=== PATIENT | female | born 1955 | race American Indian/Alaskan Native ===

== ENCOUNTER 2017-04-29 14:08 | Observation (INO) | payer MEDICAID, OTHER ==
[2017-04-29] MEDS ORDERED: Aspirin 81 MG Tab.Chew PO ONE (15:56)
--- NOTE | 2017-04-29 16:04 | EDM.PDOC ---
ED HPI GENERAL MEDICAL PROBLEM - General Chief Complaint: Fever Stated Complaint: DIZZY,FEVER Time Seen by Provider: 04/29/17 15:50 Source of Information: Reports: Patient History Limitations: Reports: No Limitations - History of Present Illness INITIAL COMMENTS - FREE TEXT/NARRATIVE: HISTORY AND PHYSICAL: History of present illness: [Patient comes to the emergency room complaining of fever and dizziness with sudden onset this morning. Temp has been up to 103 at home today. She states that her daughter gave her a medication to reduce her fever but she isn't sure what it was. She denies headache and runny nose. She has a mild sore throat. No cough or chest congestion. 2 episodes of vomiting while in the ER which she was not experiencing prior to arrival. No diarrhea or constipation. She denies nausea currently. No leg pain other than bilateral foot pain yesterday. Admits to pain over her kidneys, L worse than R. she has no muscle or joint aches or pains. She has a history of diabetes for which she takes po meds. Review of systems: As per history of present illness and below otherwise all systems reviewed and negative. Past medical history: As per history of present illness and as reviewed below otherwise noncontributory. Surgical history: As per history of present illness and as reviewed below otherwise noncontributory. Social history: No reported history of drug or alcohol abuse. Family history: As per history of present illness and as reviewed below otherwise noncontributory. Physical exam: Gen. well-developed well-nourished female in no acute distress. She is resting on the exam table breathing heavily with her eyes closed. She appears tired. HEENT: Atraumatic, normocephalic. Oral mucous membranes are pink and moist. Lungs: Clear to auscultation, breath sounds equal bilaterally. No wheezing, crackles or rales. Heart: S1S2, regular rate and rhythm. Abdomen: Bowel sounds are normoactive throughout. Soft, nondistended, nontender. No suprapubic tenderness w/ palpation. Negative for masses, guarding or rebound. Tender w/ palpation over L flank. Pelvis: Stable nontender. Genitourinary: Deferred. Rectal: Deferred. Extremities: Atraumatic, no calf pain w/ palpation. Neurovascular unremarkable. Neuro: Awake, alert, oriented. Motor and sensory unremarkable throughout. Exam nonfocal. Diagnostics: [CBC, CMP, EKG, troponin, Influenza A&B, PT/INR, chest x-ray ] Therapeutics: [aspirin 324mg, Rocephin 1 gram IV, 1 liter NS] Impression: [UTI] Plan: [UA shows yellow cloudy urine with a moderate amount of blood and 500 glucose. Moderate amount of leukocyte esterase and white blood cells that are too numerous to count. I discussed patient's condition with Dr. Deepak Appiah who agrees to place patient in observation for IV fluids and antibiotics. Patient is in agreement with today's plan for observation.] Definitive disposition and diagnosis as appropriate pending reevaluation and review of above. Abdomen Pain Score (Numeric/FACES): 6 - Related Data Allergies Allergy/AdvReac Type Severity Reaction Status Date / Time No Known Allergies Allergy Verified 04/29/17 15:27 Home Meds: Home Meds Rex-3 Fatty Acids [Fish Oil] 1 tab PO DAILY 03/23/14 [History] metFORMIN [Glucophage] 1 tab PO BID 03/23/14 [History] Aspirin 81 mg PO DAILY 04/29/17 [History] Cholecalciferol (Vitamin D3) [Vitamin D3] 1,000 unit PO DAILY 04/29/17 [History] Pioglitazone [Actos] 45 mg PO DAILY 04/29/17 [History] Past Medical History Neurological History: Reports: TIA Endocrine/Metabolic History: Reports: Diabetes, Type II - Infectious Disease History Infectious Disease History: Reports: Chicken Pox Social & Family History - Family History Family Medical History: Noncontributory - Tobacco Use Smoking Status *Q: Former Smoker Years of Tobacco use: 30 Used Tobacco, but Quit: Yes Month Tobacco Last Used: 03/04 - Caffeine Use Caffeine Use: Reports: Coffee - Alcohol Use Days Per Week of Alcohol Use: 0 - Recreational Drug Use Recreational Drug Use: No ED ROS ENT - Review of Systems Review Of Systems: ROS reveals no pertinent complaints other than HPI. ED EXAM, ENT - Physical Exam Exam: See Below Course - Vital Signs Last Recorded V/S: Last Vital Signs Temp 98.2 F 04/30/17 07:00 Pulse 86 04/30/17 07:00 Resp 16 04/30/17 07:00 BP 119/57 L 04/30/17 07:00 Pulse Ox 95 04/30/17 07:00 - Orders/Labs/Meds Orders: Active Orders 24 hr Category Date Time Status Chest 1V Frontal [CR] Stat Exams 04/29/17 15:56 Taken CULTURE BLOOD [BC] Stat Lab 04/29/17 18:31 Received CULTURE BLOOD [BC] Stat Lab 04/29/17 18:40 Received CULTURE URINE [RM] Stat Lab 04/29/17 17:00 Received Blood Culture x2 Reflex Set [OM.PC] Stat Oth 04/29/17 17:54 Ordered Medication Orders Acetaminophen (Tylenol) 650 mg PO Q4H PRN PRN Reason: Pain (Mild 1-3)/fever Enoxaparin Sodium (Lovenox) 40 mg SUBCUT DAILY [facility] Last Admin: 04/30/17 08:39 Dose: 40 mg Sodium Chloride (Normal Saline) 1,000 mls @ 125 mls/hr IV ASDIRECTED [facility] Last Admin: 04/30/17 03:49 Dose: 125 mls/hr Infusion: 04/30/17 03:45 Dose: 125 mls/hr Admin: 04/29/17 19:45 Dose: 125 mls/hr Ceftriaxone Sodium/Dextrose 1 (gm/ Premix) 50 mls @ 100 mls/hr IV Q24H [facility] Insulin Aspart (Novolog) 0 unit SUBCUT TIDAC [facility] PRN Reason: Protocol Last Admin: 04/30/17 06:54 Dose: Not Given Ondansetron HCl (Zofran) 4 mg IVPUSH Q4H PRN PRN Reason: Nausea Labs: Laboratory Tests 04/29/17 04/29/17 04/29/17 Range/Units 16:11 16:11 16:11 WBC 15.22 H (4.0-11.0) K/uL RBC 4.13 L (4.30-5.90) M/uL Hgb 12.2 (12.0-16.0) g/dL Hct 35.9 L (36.0-46.0) % MCV 86.9 (80.0-98.0) fL MCH 29.5 (27.0-32.0) pg MCHC 34.0 (31.0-37.0) g/dL RDW Std Deviation 42.6 (28.0-62.0) fl RDW Coeff of Leon 13 (11.0-15.0) % Plt Count 261 (150-400) K/uL MPV 9.70 (7.40-12.00) fL Neut % (Auto) 87.9 H (48.0-80.0) % Lymph % (Auto) 6.4 L (16.0-40.0) % [place] % (Auto) 5.6 (0.0-15.0) % Eos % (Auto) 0.0 (0.0-7.0) % Baso % (Auto) 0.1 (0.0-1.5) % Neut # (Auto) 13.4 H (1.4-5.7) K/uL Lymph # (Auto) 1.0 (0.6-2.4) K/uL [place] # (Auto) 0.9 H (0.0-0.8) K/uL Eos # (Auto) 0.0 (0.0-0.7) K/uL Baso # (Auto) 0.0 (0.0-0.1) K/uL Nucleated RBC % 0.0 /100WBC Nucleated RBCs # 0 K/uL INR 0.94 (0.86-1.11) D-Dimer, Quantitative (0.0-0.52) mg/LFEU Lactate (0.20-2.00) mmol/L Sodium 135 L (136-146) mmol/L Potassium 4.7 (3.5-5.1) mmol/L Chloride 102 (98-110) mmol/L Carbon Dioxide 20 L (21-31) mmol/L BUN 14 (6.0-23.0) mg/dL Creatinine 0.9 (0.6-1.5) mg/dL Est Cr Clr Drug Dosing 63.01 mL/min Estimated GFR (MDRD) > 60.0 ml/min Glucose 270 H (60-110) mg/dL Calcium 9.5 (8.8-10.8) mg/dL Total Bilirubin 0.6 (0.1-1.5) mg/dL AST 12 (5-40) IU/L ALT 11 (8-54) IU/L Alkaline Phosphatase 108 (40-150) Troponin I < 0.10 (0.0-0.29) NG/ML Total Protein 7.5 (6.0-8.0) g/dL Albumin 4.1 (3.5-5.0) g/dL Globulin 3.4 (2.0-3.5) g/dL Albumin/Globulin Ratio 1.2 L (1.3-2.8) Urine Color Urine Appearance Urine pH (5.0-8.0) Ur Specific [place] (1.001-1.035) Urine Protein (NEGATIVE) mg/dL Urine Glucose (UA) (NEGATIVE) mg/dL Urine Ketones (NEGATIVE) mg/dL Urine Occult Blood (NEGATIVE) Urine Nitrite (NEGATIVE) Urine Bilirubin (NEGATIVE) Urine Urobilinogen (<2.0) EU/dL Ur Leukocyte Esterase (NEGATIVE) Urine RBC (0-2/HPF) Urine WBC (0-5/HPF) Ur Epithelial Cells (NONE-FEW) Urine Bacteria (NEGATIVE) Urine Mucus (NONE-MOD) Urine Yeast 04/29/17 04/29/17 04/29/17 Range/Units 16:11 16:11 17:00 WBC (4.0-11.0) K/uL RBC (4.30-5.90) M/uL Hgb (12.0-16.0) g/dL Hct (36.0-46.0) % MCV (80.0-98.0) fL MCH (27.0-32.0) pg MCHC (31.0-37.0) g/dL RDW Std Deviation (28.0-62.0) fl RDW Coeff of Leon (11.0-15.0) % Plt Count (150-400) K/uL MPV (7.40-12.00) fL Neut % (Auto) (48.0-80.0) % Lymph % (Auto) (16.0-40.0) % [place] % (Auto) (0.0-15.0) % Eos % (Auto) (0.0-7.0) % Baso % (Auto) (0.0-1.5) % Neut # (Auto) (1.4-5.7) K/uL Lymph # (Auto) (0.6-2.4) K/uL [place] # (Auto) (0.0-0.8) K/uL Eos # (Auto) (0.0-0.7) K/uL Baso # (Auto) (0.0-0.1) K/uL Nucleated RBC % /100WBC Nucleated RBCs # K/uL INR (0.86-1.11) D-Dimer, Quantitative 0.31 (0.0-0.52) mg/LFEU Lactate 1.8 (0.20-2.00) mmol/L Sodium (136-146) mmol/L Potassium (3.5-5.1) mmol/L Chloride (98-110) mmol/L Carbon Dioxide (21-31) mmol/L BUN (6.0-23.0) mg/dL Creatinine (0.6-1.5) mg/dL Est Cr Clr Drug Dosing mL/min Estimated GFR (MDRD) ml/min Glucose (60-110) mg/dL Calcium (8.8-10.8) mg/dL Total Bilirubin (0.1-1.5) mg/dL AST (5-40) IU/L ALT (8-54) IU/L Alkaline Phosphatase (40-150) Troponin I (0.0-0.29) NG/ML Total Protein (6.0-8.0) g/dL Albumin (3.5-5.0) g/dL Globulin (2.0-3.5) g/dL Albumin/Globulin Ratio (1.3-2.8) Urine Color YELLOW Urine Appearance CLOUDY Urine pH 5.5 (5.0-8.0) Ur Specific [place] >= 1.030 (1.001-1.035) Urine Protein 30 (NEGATIVE) mg/dL Urine Glucose (UA) 500 H (NEGATIVE) mg/dL Urine Ketones NEGATIVE (NEGATIVE) mg/dL Urine Occult Blood MODERATE (NEGATIVE) Urine Nitrite NEGATIVE (NEGATIVE) Urine Bilirubin NEGATIVE (NEGATIVE) Urine Urobilinogen 0.2 (<2.0) EU/dL Ur Leukocyte Esterase MODERATE (NEGATIVE) Urine RBC 1-3 (0-2/HPF) Urine WBC TO NUMEROUS TO COUNT H (0-5/HPF) Ur Epithelial Cells OCCASIONAL (NONE-FEW) Urine Bacteria FEW (NEGATIVE) Urine Mucus LIGHT (NONE-MOD) Urine Yeast RARE Meds: Medications Generic Name Dose Route Start Last Admin Trade Name Freq PRN Reason Stop Dose Admin Acetaminophen 650 mg 04/29/17 19:45 Tylenol PO Q4H PRN Pain (Mild 1-3)/fever Enoxaparin Sodium 40 mg 04/30/17 09:00 04/30/17 08:39 Lovenox SUBCUT 40 mg DAILY AJ Administration Sodium Chloride 1,000 mls @ 125 mls/hr 04/29/17 19:30 04/30/17 03:49 Normal Saline IV 125 mls/hr ASDIRECTED [facility] Administration Ceftriaxone Sodium/Dextrose 1 50 mls @ 100 mls/hr 04/30/17 18:00 gm/ Premix IV Q24H [facility] Insulin Aspart 0 unit 04/30/17 07:30 04/30/17 06:54 Novolog SUBCUT Not Given TIDAC [facility] Protocol Ondansetron HCl 4 mg 04/29/17 19:45 Zofran IVPUSH Q4H PRN Nausea Discontinued Medications Generic Name Dose Route Start Last Admin Trade Name Freq PRN Reason Stop Dose Admin Aspirin 324 mg 04/29/17 15:56 04/29/17 16:21 Aspirin PO 04/29/17 15:57 324 mg ONETIME ONE Administration Ceftriaxone Sodium 1,000 mg 04/30/17 19:30 Rocephin IVPUSH Q24H [facility] Ceftriaxone Sodium 1,000 mg/ 50 mls @ 200 mls/hr 04/29/17 17:54 04/29/17 18: 12 Sodium Chloride IV 04/29/17 18:08 Not Given ONETIME ONE Sodium Chloride 1,000 mls @ 999 mls/hr 04/29/17 17:53 04/29/17 18:17 Normal Saline IV 04/29/17 18:53 999 mls/hr STAT ONE Administration Ceftriaxone Sodium/Dextrose 1 50 mls @ 100 mls/hr 04/29/17 18:11 04/29/17 18: 17 gm/ Premix IV 04/29/17 18:40 100 mls/hr ONETIME ONE Administration Departure - Departure Time of Disposition: 18:59 Disposition: Refer to Observation Condition: Good Clinical Impression: UTI (urinary tract infection) - Discharge Information - My Orders Last 24 Hours: My Active Orders 04/29/17 15:56 Chest 1V Frontal [CR] Stat 04/29/17 17:00 CULTURE URINE [RM] Stat 04/29/17 17:54 Blood Culture x2 Reflex Set [OM.PC] Stat 04/29/17 18:31 CULTURE BLOOD [BC] Stat 04/29/17 18:40 CULTURE BLOOD [BC] Stat - Assessment/Plan Last 24 Hours: My Active Orders 04/29/17 15:56 Chest 1V Frontal [CR] Stat 04/29/17 17:00 CULTURE URINE [RM] Stat 04/29/17 17:54 Blood Culture x2 Reflex Set [OM.PC] Stat 04/29/17 18:31 CULTURE BLOOD [BC] Stat 04/29/17 18:40 CULTURE BLOOD [BC] Stat
[2017-04-29 16:41] LABS: CHLORIDE,CL 102 mmol/L (98-110); SODIUM,NA 135 mmol/L (136-146)
[2017-04-29] MEDS ORDERED: Sodium Chloride 0.9% 1,000 ML IV ONE (17:53)
[2017-04-29] MEDS ORDERED: cefTRIAXone 1,000 MG in Sodium Chloride 0.9% 50 ML IV ONE (17:54)
[2017-04-29] MEDS ORDERED: cefTRIAXone 1 GM in Premix Bag 1 BAG IV ONE (18:11)
[2017-04-29] MEDS ORDERED: Ondansetron 4 MG/2 ML SDV IVPUSH PRN (19:45)
[2017-04-29] MEDS: Sodium Chloride 0.9% 1,000 ML IV SCH (19:45)
--- NOTE | 2017-04-29 19:52 | PCM.HP ---
H&P History of Present Illness - General Admit Problem/Dx: Admission Diagnosis/Problem Admission Diagnosis/Problem UTI, Urinary tract infectious disease - History of Present Illness Initial Comments - Free Text/Narative: 61yo female with pmh of type 2 DM who presents with one day history of fevers, chill, nausea, and bilateral flank pain. She had just finished a course of amoxicillin for a cold. In the ED she was noted to have a WBC of 15,220 and pyuria. She was given Rocephin IV. Abdomen Pain Score (Numeric/FACES): 6 - Related Data Allergies/Adverse Reactions: Allergies Allergy/AdvReac Type Severity Reaction Status Date / Time No Known Allergies Allergy Verified 04/29/17 15:27 Home Medications: Home Meds Show Low-3 Fatty Acids [Fish Oil] 1 tab PO DAILY 03/23/14 [History] metFORMIN [Glucophage] 1 tab PO BID 03/23/14 [History] Aspirin 81 mg PO DAILY 04/29/17 [History] Cholecalciferol (Vitamin D3) [Vitamin D3] 1,000 unit PO DAILY 04/29/17 [History] Pioglitazone [Actos] 45 mg PO DAILY 04/29/17 [History] Past Medical History Neurological History: Reports: TIA Endocrine/Metabolic History: Reports: Diabetes, Type II - Infectious Disease History Infectious Disease History: Reports: Chicken Pox Social & Family History - Family History Family Medical History: Noncontributory - Tobacco Use Smoking Status *Q: Former Smoker Years of Tobacco use: 30 Used Tobacco, but Quit: Yes Month Tobacco Last Used: 03/04 - Caffeine Use Caffeine Use: Reports: Coffee - Alcohol Use Days Per Week of Alcohol Use: 0 - Recreational Drug Use Recreational Drug Use: No H&P Review of Systems - Review of Systems: Review Of Systems: ROS reveals no pertinent complaints other than HPI. Exam - Exam Exam: See Below - Vital Signs Vital Signs: Last Vital Signs Temp 35.9 C 04/29/17 19:21 Pulse 59 L 04/29/17 19:21 Resp 18 04/29/17 19:21 BP 113/63 04/29/17 18:00 Pulse Ox 97 04/29/17 19:21 Weight: 84.2 kg - Exam General: Alert, Oriented HEENT: Mucosa Moist & [place] Lungs: Clear to Auscultation, Normal Respiratory Effort Cardiovascular: Regular Rate, Regular Rhythm GI/Abdominal Exam: Soft, Non-Tender, No Distention Back Exam: CVA Tenderness (L) (mild), CVA Tenderness (R) (mild) Extremities: No Pedal Edema Skin: Warm, Dry, Intact Neurological: No: Focal Deficit - Patient Data Result Diagrams: 04/30/17 06:15 04/30/17 06:15 *Q Meaningful Use (ADM) - VTE *Q VTE Criteria *Q: - Stroke *Q Stroke Criteria *Q: - AMI *Q AMI Criteria *Q: Problem List Initiated/Reviewed/Updated: Yes Orders Last 24hrs: Active Orders 24 hr Category Date Time Status Antiembolic Devices [RC] PER UNIT ROUTINE Care 04/29/17 19:46 Ordered Blood Glucose Check, Bedside [RC] TIDAC Care 04/29/17 19:20 Active Oxygen Therapy [RC] PRN Care 04/29/17 19:45 Ordered Up ad Dina [RC] ASDIRECTED Care 04/29/17 19:45 Ordered VTE/DVT Education [RC] PER UNIT ROUTINE Care 04/29/17 19:45 Ordered Vital Signs [RC] Q4H Care 04/29/17 19:45 Ordered Citizen Of [place] Diabetic Association Diet [DIET] Diet 04/29/17 Breakfast Ordered Retroperitoneal Ltd [US] Routine Exams 04/29/17 19:22 Ordered Venous Doppler Lwr Ext Rt [US] Routine Exams 04/29/17 19:34 Ordered BASIC METABOLIC PANEL,BMP [CHEM] AM Lab 04/30/17 05:11 Ordered BASIC METABOLIC PANEL,BMP [CHEM] AM Lab 05/01/17 05:11 Ordered BASIC METABOLIC PANEL,BMP [CHEM] AM Lab 05/02/17 05:11 Ordered CBC WITH AUTO DIFF [HEME] AM Lab 04/30/17 05:11 Ordered CBC WITH AUTO DIFF [HEME] AM Lab 05/01/17 05:11 Ordered CBC WITH AUTO DIFF [HEME] AM Lab 05/02/17 05:11 Ordered Acetaminophen [Tylenol] Med 04/29/17 19:45 Ordered 650 mg PO Q4H PRN Enoxaparin [Lovenox] Med 04/30/17 09:00 Ordered 40 mg SUBCUT DAILY Insulin Aspart [NovoLOG] Med 04/30/17 07:30 Ordered See Protocol SUBCUT TIDAC Ondansetron [Zofran] Med 04/29/17 19:45 Ordered 4 mg IVPUSH Q4H PRN Sodium Chloride 0.9% [Normal Saline] 1,000 ml Med 04/29/17 19:30 Ordered IV ASDIRECTED cefTRIAXone [Rocephin in Dextrose,Iso-Osm 1 GM/50 ML] 1 Med 04/30/17 18:00 Active gm Premix Bag 1 bag IV Q24H Sequential Compression Device [OM.PC] Per Unit Routine Oth 04/29/17 19:45 Ordered Resuscitation Status Routine Resus Stat 04/29/17 19:45 Ordered Medication Orders Sodium Chloride (Normal Saline) 1,000 mls @ 125 mls/hr IV ASDIRECTED AJ Last Admin: 04/29/17 19:45 Dose: 125 mls/hr Ceftriaxone Sodium/Dextrose 1 (gm/ Premix) 50 mls @ 100 mls/hr IV Q24H [facility] Insulin Aspart (Novolog) 0 unit SUBCUT TIDAC AJ PRN Reason: Protocol Assessment/Plan Comment:: 61 yo female admitted for pyelonephritis. Pyelonephritis: Rocpehin, cultures pending, will check renal ultrasound DM: diabetic diet, ssi
[2017-04-30] MEDS: Sodium Chloride 0.9% 1,000 ML IV SCH ×3 (03:49→23:08)
[2017-04-30 06:43] LABS: CHLORIDE,CL 110 mmol/L (98-110); SODIUM,NA 142 mmol/L (136-146)
[2017-04-30] MEDS: Insulin Aspart 100 Units/ML 3 ML Pen SUBCUT SCH ×3 (06:54→17:06)
[2017-04-30] MEDS: Enoxaparin 40 MG/0.4 ML Syringe SUBCUT SCH (08:39)
--- NOTE | 2017-04-30 10:50 | PCM.PN ---
- Review of Systems Systems Review Comment:: feeling better, no fevers. - Patient Data Vitals - Most Recent: Last Vital Signs Temp 36.8 C 04/30/17 07:00 Pulse 86 04/30/17 07:00 Resp 16 04/30/17 07:00 BP 119/57 L 04/30/17 07:00 Pulse Ox 95 04/30/17 07:00 Weight - Most Recent: 84.2 kg I&O - Last 24 Hours: Intake & Output 04/29/17 04/30/17 04/30/17 22:59 06:59 14:59 Intake Total 1500 Output Total 2200 Balance -700 Lab Results Last 24 Hours: Laboratory Results - last 24 hr 04/30/17 04/30/17 04/30/17 Range/Units 06:15 06:15 06:36 WBC 11.24 H (4.0-11.0) K/uL RBC 3.82 L (4.30-5.90) M/uL Hgb 11.2 L (12.0-16.0) g/dL Hct 33.6 L (36.0-46.0) % MCV 88.0 (80.0-98.0) fL MCH 29.3 (27.0-32.0) pg MCHC 33.3 (31.0-37.0) g/dL RDW Std Deviation 43.2 (28.0-62.0) fl RDW Coeff of Leon 14 (11.0-15.0) % Plt Count 244 (150-400) K/uL MPV 9.40 (7.40-12.00) fL Neut % (Auto) 75.8 (48.0-80.0) % Lymph % (Auto) 16.0 (16.0-40.0) % [place] % (Auto) 7.6 (0.0-15.0) % Eos % (Auto) 0.4 (0.0-7.0) % Baso % (Auto) 0.2 (0.0-1.5) % Neut # (Auto) 8.5 H (1.4-5.7) K/uL Lymph # (Auto) 1.8 (0.6-2.4) K/uL [place] # (Auto) 0.9 H (0.0-0.8) K/uL Eos # (Auto) 0.1 (0.0-0.7) K/uL Baso # (Auto) 0.0 (0.0-0.1) K/uL Nucleated RBC % 0.0 /100WBC Nucleated RBCs # 0 K/uL Sodium 142 (136-146) mmol/L Potassium 3.9 (3.5-5.1) mmol/L Chloride 110 (98-110) mmol/L Carbon Dioxide 22 (21-31) mmol/L BUN 13 (6.0-23.0) mg/dL Creatinine 0.6 (0.6-1.5) mg/dL Est Cr Clr Drug Dosing 95.03 mL/min Estimated GFR (MDRD) > 60.0 ml/min Glucose 110 (60-110) mg/dL POC Glucose 108 (60-110) mg/dL Calcium 8.3 L (8.8-10.8) mg/dL Med Orders - Current: Current Medications Acetaminophen (Tylenol) 650 mg PO Q4H PRN PRN Reason: Pain (Mild 1-3)/fever Enoxaparin Sodium (Lovenox) 40 mg SUBCUT DAILY [facility] Last Admin: 04/30/17 08:39 Dose: 40 mg Sodium Chloride (Normal Saline) 1,000 mls @ 125 mls/hr IV ASDIRECTED [facility] Last Admin: 04/30/17 03:49 Dose: 125 mls/hr Ceftriaxone Sodium/Dextrose 1 (gm/ Premix) 50 mls @ 100 mls/hr IV Q24H [facility] Insulin Aspart (Novolog) 0 unit SUBCUT TIDAC [facility] PRN Reason: Protocol Last Admin: 04/30/17 06:54 Dose: Not Given Ondansetron HCl (Zofran) 4 mg IVPUSH Q4H PRN PRN Reason: Nausea Discontinued Medications Aspirin (Aspirin) 324 mg PO ONETIME ONE Stop: 04/29/17 15:57 Last Admin: 04/29/17 16:21 Dose: 324 mg Ceftriaxone Sodium (Rocephin) 1,000 mg IVPUSH Q24H [facility] Ceftriaxone Sodium 1,000 mg/ (Sodium Chloride) 50 mls @ 200 mls/hr IV ONETIME ONE Stop: 04/29/17 18:08 Last Admin: 04/29/17 18:12 Dose: Not Given Sodium Chloride (Normal Saline) 1,000 mls @ 999 mls/hr IV STAT ONE Stop: 04/29/17 18:53 Last Admin: 04/29/17 18:17 Dose: 999 mls/hr Ceftriaxone Sodium/Dextrose 1 (gm/ Premix) 50 mls @ 100 mls/hr IV ONETIME ONE Stop: 04/29/17 18:40 Last Admin: 04/29/17 18:17 Dose: 100 mls/hr - Exam General: Alert, Oriented Lungs: Clear to Auscultation, Normal Respiratory Effort Cardiovascular: Regular Rate, Regular Rhythm GI/Abdominal Exam: Soft, Non-Tender Back Exam: No: CVA Tenderness (L), CVA Tenderness (R) Extremities: No Pedal Edema Skin: Warm, Intact - Problem List Review Problem List Initiated/Reviewed/Updated: Yes - My Orders Last 24 Hours: My Active Orders 04/29/17 19:20 Blood Glucose Check, Bedside [RC] TIDAC 04/29/17 19:30 Sodium Chloride 0.9% [Normal Saline] 1,000 ml IV ASDIRECTED 04/29/17 19:45 Oxygen Therapy [RC] PRN Up ad Dina [RC] ASDIRECTED Vital Signs [RC] Q4H Acetaminophen [Tylenol] 650 mg PO Q4H PRN Ondansetron [Zofran] 4 mg IVPUSH Q4H PRN Sequential Compression Device [OM.PC] Per Unit Routine Resuscitation Status Routine 04/29/17 19:46 Antiembolic Devices [RC] PER UNIT ROUTINE 04/30/17 07:30 Insulin Aspart [NovoLOG] See Protocol SUBCUT TIDAC 04/30/17 09:00 Enoxaparin [Lovenox] 40 mg SUBCUT DAILY 04/30/17 09:26 Retroperitoneal Ltd [US] Routine Venous Doppler Lwr Ext Rt [US] Routine 04/30/17 18:00 cefTRIAXone [Rocephin in Dextrose,Iso-Osm 1 GM/50 ML] 1 gm Premix Bag 1 bag IV Q24H 05/01/17 05:11 BASIC METABOLIC PANEL,BMP [CHEM] AM CBC WITH AUTO DIFF [HEME] AM 05/02/17 05:11 BASIC METABOLIC PANEL,BMP [CHEM] AM CBC WITH AUTO DIFF [HEME] AM - Plan Plan:: 61 yo female admitted for pyelonephritis. Pyelonephritis: continue Rocpehin, cultures pending, awaiting renal ultrasound DM: diabetic diet, ssi dispo: likely discharge home tomorrow.
[2017-04-30] MEDS: Acetaminophen 325 MG Tab PO PRN ×3 (12:03→23:13)
[2017-04-30] MEDS ORDERED: cefTRIAXone 1 GM in Premix Bag 1 BAG IV SCH (18:00)
[2017-04-30] MEDS ORDERED: cefTRIAXone 1,000 MG VIAL IVPUSH SCH (19:30)
[2017-05-01 06:07] LABS: CHLORIDE,CL 111 mmol/L (98-110); SODIUM,NA 144 mmol/L (136-146)
[2017-05-01] MEDS: Insulin Aspart 100 Units/ML 3 ML Pen SUBCUT SCH ×2 (06:46→13:10)
[2017-05-01] MEDS: Sodium Chloride 0.9% 1,000 ML IV SCH (07:11)
[2017-05-01] MEDS: Enoxaparin 40 MG/0.4 ML Syringe SUBCUT SCH (08:49)
[2017-05-01 12:05] VITALS: BP 127/68
--- NOTE | 2017-05-01 14:01 | PCM.DCSUM1 ---
Discharge Summary - Discharge Data Discharge Date: 05/01/17 Discharge Disposition: Home, Self-Care 01 Condition: Good - Patient Summary/Data Hospital Course: 61yo female admitted for E. Coli pyelonephritis. She presented with one day history of fevers, chill, nausea, and bilateral flank pain. Laboratory values were significant for a WBC of 15,220 and pyuria noted on UA. CT scan of abdomen reported mild acute inflammatory stranding about the left kidney and renal pelvis and a small angiomyolipoma of left kidney. She was treated with Rocephin. Urine cultures grew out E.coli. She was discharged on Bactrim DS BID for seven days - Discharge Plan Prescriptions/Med Rec: Sulfamethoxazole/Trimethoprim [Bactrim Ds Tablet] 1 each PO BID #14 tablet Home Medications: Home Meds [facility]-3 Fatty Acids [Fish Oil] 1 tab PO DAILY 03/23/14 [History] metFORMIN [Glucophage] 1 tab PO BID 03/23/14 [History] Aspirin 81 mg PO DAILY 04/29/17 [History] Cholecalciferol (Vitamin D3) [Vitamin D3] 1,000 unit PO DAILY 04/29/17 [History] Pioglitazone [Actos] 45 mg PO DAILY 04/29/17 [History] Sulfamethoxazole/Trimethoprim [Bactrim Ds Tablet] 1 each PO BID #14 tablet 05/01 [Rx] Patient Handouts: Urinary Tract Infection, Adult, [id number], Sulfamethoxazole; Trimethoprim, SMX-TMP tablets - Patient Data Vitals - Most Recent: Last Vital Signs Temp 37.0 C 05/01/17 12:00 Pulse 86 05/01/17 12:00 Resp 14 05/01/17 12:00 BP 127/68 05/01/17 12:00 Pulse Ox 98 05/01/17 12:00 Weight - Most Recent: 84.2 kg I&O - Last 24 hours: Intake & Output 04/30/17 05/01/17 05/01/17 22:59 06:59 14:59 Intake Total 2271 689 Output Total 1200 1050 Balance 1071 -361 Lab Results - Last 24 hrs: Laboratory Results - last 24 hr 04/30/17 05/01/17 05/01/17 Range/Units 16:59 05:05 06:31 WBC 6.92 (4.0-11.0) K/uL RBC 3.92 L (4.30-5.90) M/uL Hgb 11.5 L (12.0-16.0) g/dL Hct 34.9 L (36.0-46.0) % MCV 89.0 (80.0-98.0) fL MCH 29.3 (27.0-32.0) pg MCHC 33.0 (31.0-37.0) g/dL RDW Std Deviation 43.8 (28.0-62.0) fl RDW Coeff of Leon 14 (11.0-15.0) % Plt Count 261 (150-400) K/uL MPV 9.80 (7.40-12.00) fL Neut % (Auto) 72.2 (48.0-80.0) % Lymph % (Auto) 19.7 (16.0-40.0) % Ransom % (Auto) 7.1 (0.0-15.0) % Eos % (Auto) 0.9 (0.0-7.0) % Baso % (Auto) 0.1 (0.0-1.5) % Neut # (Auto) 5.0 (1.4-5.7) K/uL Lymph # (Auto) 1.4 (0.6-2.4) K/uL Ransom # (Auto) 0.5 (0.0-0.8) K/uL Eos # (Auto) 0.1 (0.0-0.7) K/uL Baso # (Auto) 0.0 (0.0-0.1) K/uL Nucleated RBC % 0.0 /100WBC Nucleated RBCs # 0 K/uL POC Glucose 161 H 116 H (60-110) mg/dL Med Orders - Current: Current Medications Acetaminophen (Tylenol) 650 mg PO Q4H PRN PRN Reason: Pain (Mild 1-3)/fever Last Admin: 04/30/17 23:13 Dose: 650 mg Enoxaparin Sodium (Lovenox) 40 mg SUBCUT DAILY [facility] Last Admin: 05/01/17 08:49 Dose: 40 mg Sodium Chloride (Normal Saline) 1,000 mls @ 125 mls/hr IV ASDIRECTED [facility] Last Admin: 05/01/17 07:11 Dose: 125 mls/hr Ceftriaxone Sodium/Dextrose 1 (gm/ Premix) 50 mls @ 100 mls/hr IV Q24H [facility] Last Admin: 04/30/17 17:00 Dose: 100 mls/hr Insulin Aspart (Novolog) 0 unit SUBCUT TIDAC AJ PRN Reason: Protocol Last Admin: 05/01/17 13:10 Dose: Not Given Ondansetron HCl (Zofran) 4 mg IVPUSH Q4H PRN PRN Reason: Nausea Discontinued Medications Aspirin (Aspirin) 324 mg PO ONETIME ONE Stop: 04/29/17 15:57 Last Admin: 04/29/17 16:21 Dose: 324 mg Ceftriaxone Sodium (Rocephin) 1,000 mg IVPUSH Q24H [facility] Ceftriaxone Sodium 1,000 mg/ (Sodium Chloride) 50 mls @ 200 mls/hr IV ONETIME ONE Stop: 04/29/17 18:08 Last Admin: 04/29/17 18:12 Dose: Not Given Sodium Chloride (Normal Saline) 1,000 mls @ 999 mls/hr IV STAT ONE Stop: 04/29/17 18:53 Last Admin: 04/29/17 18:17 Dose: 999 mls/hr Ceftriaxone Sodium/Dextrose 1 (gm/ Premix) 50 mls @ 100 mls/hr IV ONETIME ONE Stop: 04/29/17 18:40 Last Admin: 04/29/17 18:17 Dose: 100 mls/hr *Q Meaningful Use (DIS) - VTE *Q VTE Criteria *Q: - Stroke *Q Stroke Criteria *Q: - AMI *Q AMI Criteria *Q:
--- NOTE | 2017-05-02 14:59 | CR ---
EXAM DATE: 04/29/17 PATIENT'S AGE: 61 Patient: RAJINDER OLSON Facility: [place], [place] Site . Site : 1955 Study: XRay Chest [id number]/12/2018 4:27:56 PM Ordering Physician: Doctor Camacho Final Report: INDICATION: chest pain TECHNIQUE: Chest 1 view. COMPARISON: 03/23/2014 FINDINGS: Cardiovascular and mediastinum: Heart size and vasculature are normal in caliber and appearance. Mediastinum is within normal limits. Lungs and pleural space: Lungs are clear. No sign of infiltrate or mass. No sign of pleural effusion. No pneumothorax. Bones and soft tissues: No significant findings. IMPRESSION: Unremarkable chest. Dictated by: Willem Chavis MD @ 04/29/2017 16:50:54 (Electronic Signature) Report Signed by Proxy. [facility] PSYCHIATRIC CENTERBianca
--- NOTE | 2017-05-02 16:04 | US ---
EXAM DATE: 04/29/17 PATIENT'S AGE: 61 Patient: RAJINDER OLSON Facility: [place], [place] Site . Site : 1955 Study: US Abdomen [id number]/13/2018 10:14:38 AM Ordering Physician: Td Sotelo Final Report: INDICATION: Pyelonephritis. TECHNIQUE: Transabdominal imaging with attention to the kidneys and urinary bladder. COMPARISON: None available. FINDINGS: Both kidneys measure approximately 12 cm in length. There is relatively uniform cortical thickness and parenchymal echotexture of both kidneys. No hydronephrosis. Within the cortex of the mid left kidney, there is a 2 cm area of increased echogenicity. There is a 2.5 cm cyst in the left kidney. No perinephric fluid collection. Unremarkable appearance of the urinary bladder. IMPRESSION: 1. Unremarkable sonographic appearance of the right kidney and urinary bladder. 2. Approximately 2 cm echogenic lesion is seen in the left kidney. This could represent an angiomyolipoma, although is indeterminate. Recommend comparison with prior imaging studies if available. If there are no prior imaging studies, further evaluation with CT is recommended. 3. Benign left renal cyst. Dictated by Satnam Randolph MD @ Apr 30 2017 2:34PM (Electronic Signature) Report Signed by Proxy. WILMER
--- NOTE | 2017-05-02 16:06 | US ---
EXAM DATE: 04/29/17 PATIENT'S AGE: 61 Patient: RAJINDER OLSON Facility: [place], [place] Site . Site : 1955 Study: US Extremity Right [id number]/13/2018 10:15:27 AM Ordering Physician: Td Sotelo Final Report: INDICATION: Leg pain and swelling. TECHNIQUE: Ultrasound venous duplex lower right extremity. Compression venous exam was performed using zambrano-scale, color Doppler, and spectral Doppler imaging. COMPARISON: None. FINDINGS: Sonographic imaging demonstrates the visualized right common femoral, deep femoral, femoral, popliteal, posterior tibial and greater saphenous and the contralateral left common femoral veins to be fully compressible with normal color Doppler blood flow. No Knutson`s cyst. IMPRESSION: No right lower extremity DVT. Dictated by Satnam Randolph MD @ 04/30/2017 12:08:54 PM Dictated by: Satnam Randolph MD @ 04/30/2017 12:09:15 (Electronic Signature) Report Signed by Proxy. WILMER
--- NOTE | 2017-05-02 19:13 | CT ---
EXAM DATE: 04/29/17 PATIENT'S AGE: 61 Patient: RAJINDER OLSON Facility: [place], [place] Site . Site : 1955 Study: CT Abdomen/Pelvis [id number]/14/2018 8:24:36 AM Ordering Physician: Td Sotelo Final Report: INDICATION: Urinary tract infection. General abdominal pain. TECHNIQUE: CT abdomen and pelvis without oral or IV contrast. Findings : Changes of previous granulomatous disease in the chest and spleen including calcified granulomas in the lower lungs and in the spleen. Mild soft tissue stranding about the left kidney and renal pelvis consistent with acute inflammation and/or edema. No evidence of a left ureteral stone to account for this. Given the history of urinary tract infection, I am concerned this is related to acute ascending urinary tract infection including pyelonephritis and/ or pyelitis. Pyelonephritis diagnosis by CT requires IV contrast. Clinical and laboratory correlation recommended. Small angiomyolipoma in left kidney. Larger low-density lesion and left kidney measures nearly 2 cm and is likely a cyst. The appendix is normal. Remainder negative. IMPRESSION: 1. Mild acute inflammatory stranding about the left kidney and renal pelvis suggestive of ascending urinary tract infection such as acute pyelitis or pyelonephritis. The diagnosis of pyelonephritis requires IV contrast by CT. 2 cm low-density lesion in left kidney is likely a cyst which is thought to be more likely than a low-density lesion related to the presumed acute renal infection. 2. Small angiomyolipoma left kidney. Other findings as above. Please note that all CT scans at this facility use dose modulation, iterative reconstruction, and/or weight-based dosing when appropriate to reduce radiation dose to as low as reasonably achievable. Dictated by Keith Abraham MD @ May 01 2017 8:34AM (Electronic Signature) Report Signed by Proxy. WILMER
== END 2017-05-01 14:15 | disposition home or self-care (01) ==
LOC: MW.ED 14:08 → MW.MS 18:59
PROVIDERS: ADMIT Internal Medicine; ATTEND Internal Medicine
DX: N12 Tubulo-interstitial nephritis, not specified as acute or chronic (principal); B96.20 Unspecified Escherichia coli [E. coli] as the cause of diseases classified elsewhere; D17.71 Benign lipomatous neoplasm of kidney; E11.9 Type 2 diabetes mellitus without complications; Z79.899 Other long term (current) drug therapy; Z79.84 Long term (current) use of oral hypoglycemic drugs; Z79.82 Long term (current) use of aspirin; Z86.73 Personal history of transient ischemic attack (TIA), and cerebral infarction without residual deficits; Z87.891 Personal history of nicotine dependence
CPT/HCPCS: 36415; 71045; 74176; 76775; 80048; 80053; 81001; 82962; 83605; 84484; 85025; 85379; 85610; 87040; 87086; 87088; 87186; 87804; 93005; 93971; 96361; 96365; 99285; A9270; J0696; J1650; J1815; J7040; 96366; 96372; 99284; G0378

== ENCOUNTER 2017-09-07 20:45 | Emergency (ER) | payer MEDICAID, OTHER ==
[2017-09-07] MEDS ORDERED: Sodium Chloride 0.9% 1,000 ML IV ONE ×2 (20:54→22:30)
--- NOTE | 2017-09-07 20:58 | EDM.PDOC ---
ED HPI GENERAL MEDICAL PROBLEM - General Chief Complaint: Diabetic Complaint Stated Complaint: HIGH BLOOD SUGAR/BLURRY VISION Time Seen by Provider: 09/07/17 20:51 - History of Present Illness INITIAL COMMENTS - FREE TEXT/NARRATIVE: HISTORY AND PHYSICAL: History of present illness: Patient 62-year-old female history [id number] diabetes is on metformin presents with concern of elevated blood sugar she states it was 500 home on arrival here for 424 she denies any fever chills nausea vomiting Review of systems: As per history of present illness and below otherwise all systems reviewed and negative. Past medical history: As per history of present illness and as reviewed below otherwise noncontributory. Surgical history: As per history of present illness and as reviewed below otherwise noncontributory. Social history: No reported history of drug or alcohol abuse. Family history: As per history of present illness and as reviewed below otherwise noncontributory. Physical exam: HEENT: Atraumatic, normocephalic, pupils reactive, negative for conjunctival pallor or scleral icterus, mucous membranes moist, throat clear, neck supple, nontender, trachea midline. Lungs: Clear to auscultation, breath sounds equal bilaterally, chest nontender. Heart: S1S2, regular, negative for clicks, rubs, or JVD. Abdomen: Soft, nondistended, nontender. Negative for masses or hepatosplenomegaly. Negative for costovertebral tenderness. Pelvis: Stable nontender. Genitourinary: Deferred. Rectal: Deferred. Extremities: Atraumatic, negative for cords or calf pain. Neurovascular unremarkable. Neuro: Awake, alert, oriented. Cranial nerves II through XII unremarkable. Cerebellum unremarkable. Motor and sensory unremarkable throughout. Exam nonfocal. Diagnostics: CBC CMP UA urine culture EKG Therapeutics: Saline 1 L bolus Impression: #1 type 2 diabetes with hyperglycemia Definitive disposition and diagnosis as appropriate pending reevaluation and review of above. 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: Reports: Musculoskeletal History: Reports: None Neurological History: Reports: TIA Psychiatric History: Reports: None Endocrine/Metabolic History: Reports: Diabetes, Type II Hematologic History: Reports: None Oncologic (Cancer) History: Reports: None - Infectious Disease History Infectious Disease History: Reports: Chicken Pox - Past Surgical History Head Surgeries/Procedures: Reports: None Cardiovascular Surgical History: Reports: None Female Surgical History: Reports: Section Social & Family History - Family History Family Medical History: Noncontributory Cardiac: Reports: Hypertension Other Cardiac Family History: mother - Caffeine Use Caffeine Use: Reports: Coffee Other Caffeine Use: 1 cup/day - Recreational Drug Use Recreational Drug Use: No ED ROS GENERAL - Review of Systems Review Of Systems: ROS reveals no pertinent complaints other than HPI. ED EXAM GENERAL NO PERIP PULSE - Physical Exam Exam: See Below (See dictation) Course - Vital Signs Last Recorded V/S: Last Vital Signs Temp 36.1 C 09/07/17 20:48 Pulse 80 09/07/17 20:48 Resp 20 09/07/17 20:48 BP 146/79 H 09/07/17 20:48 Pulse Ox 96 09/07/17 20:48 - Orders/Labs/Meds Orders: Active Orders 24 hr Category Date Time Status EKG Documentation Completion [RC] STAT Care 09/07/17 20:54 Active CULTURE URINE [RM] Stat Lab 09/07/17 21:39 Received UA W/MICROSCOPIC [URIN] Stat Lab 09/07/17 21:39 Ordered Sodium Chloride 0.9% [Normal Saline] 1,000 ml Med 09/07/17 22:30 Active IV .Bolus Medication Orders Sodium Chloride (Normal Saline) 1,000 mls @ 999 drops/hr IV .Bolus ONE Stop: 09/08/17 13:30 Labs: Laboratory Tests 09/07/17 09/07/17 09/07/17 Range/Units 21:30 21:30 21:39 WBC 6.76 (4.0-11.0) K/uL RBC 4.46 (4.30-5.90) M/uL Hgb 12.7 (12.0-16.0) g/dL Hct 37.7 (36.0-46.0) % MCV 84.5 (80.0-98.0) fL MCH 28.5 (27.0-32.0) pg MCHC 33.7 (31.0-37.0) g/dL RDW Std Deviation 40.9 (28.0-62.0) fl RDW Coeff of Leon 14 (11.0-15.0) % Plt Count 263 (150-400) K/uL MPV 10.60 (7.40-12.00) fL Neut % (Auto) 53.9 (48.0-80.0) % Lymph % (Auto) 39.6 (16.0-40.0) % Bowie % (Auto) 4.3 (0.0-15.0) % Eos % (Auto) 1.8 (0.0-7.0) % Baso % (Auto) 0.4 (0.0-1.5) % Neut # (Auto) 3.6 (1.4-5.7) K/uL Lymph # (Auto) 2.7 H (0.6-2.4) K/uL Bowie # (Auto) 0.3 (0.0-0.8) K/uL Eos # (Auto) 0.1 (0.0-0.7) K/uL Baso # (Auto) 0.0 (0.0-0.1) K/uL Nucleated RBC % 0.0 /100WBC Nucleated RBCs # 0 K/uL Sodium 136 (136-145) mmol/L Potassium 3.7 (3.5-5.1) mmol/L Chloride 100 (98-107) mmol/L Carbon Dioxide 26.9 (21.0-32.0) mmol/L BUN 12 (7.0-18.0) mg/dL Creatinine 0.9 (0.6-1.0) mg/dL Est Cr Clr Drug Dosing TNP Estimated GFR (MDRD) > 60.0 ml/min Glucose 525 H* (74-106) mg/dL Calcium 9.3 (8.5-10.1) mg/dL Total Bilirubin 0.3 (0.2-1.0) mg/dL AST 12 L (15-37) IU/L ALT 22 (14-63) IU/L Alkaline Phosphatase 179 H (46-116) U/L Total Protein 6.9 (6.4-8.2) g/dL Albumin 3.4 (3.4-5.0) g/dL Globulin 3.5 (2.0-3.5) g/dL Albumin/Globulin Ratio 1.0 L (1.3-2.8) Urine Color YELLOW Urine Appearance CLEAR Urine pH 6.0 (5.0-8.0) Ur Specific Roulette <= 1.005 (1.001-1.035) Urine Protein NEGATIVE (NEGATIVE) mg/dL Urine Glucose (UA) >=1000 (NEGATIVE) mg/dL Urine Ketones NEGATIVE (NEGATIVE) mg/dL Urine Occult Blood NEGATIVE (NEGATIVE) Urine Nitrite NEGATIVE (NEGATIVE) Urine Bilirubin NEGATIVE (NEGATIVE) Urine Urobilinogen 0.2 (<2.0) EU/dL Ur Leukocyte Esterase NEGATIVE (NEGATIVE) Urine RBC 0-1 (0-2/HPF) Urine WBC 0-1 (0-5/HPF) Ur Epithelial Cells RARE (NONE-FEW) Urine Bacteria RARE (NEGATIVE) Meds: Medications Generic Name Dose Route Start Last Admin Trade Name Freq PRN Reason Stop Dose Admin Sodium Chloride 1,000 mls @ 999 drops/hr 09/07/17 22:30 Normal Saline IV 09/08/17 13:30 .Bolus ONE Discontinued Medications Generic Name Dose Route Start Last Admin Trade Name Freq PRN Reason Stop Dose Admin Sodium Chloride 1,000 mls @ 999 mls/hr 09/07/17 20:54 09/07/17 21:37 Normal Saline IV 09/07/17 21:54 999 mls/hr STAT ONE Administration Departure - Departure Time of Disposition: 22:37 Disposition: Home, Self-Care 01 Condition: Good Clinical Impression: Hyperglycemia, Non-insulin dependent type 2 diabetes mellitus - Discharge Information Instructions: Diabetes Mellitus and Nutrition Forms: ED Department Discharge Additional Instructions: The following information is given to patients seen in the emergency department who are being discharged to home. This information is to outline your options for follow-up care. We provide all patients seen in our emergency department with a follow-up referral. The need for follow-up, as well as the timing and circumstances, are variable depending upon the specifics of your emergency department visit. If you don't have a primary care physician on staff, we will provide you with a referral. We always advise you to contact your personal physician following an emergency department visit to inform them of the circumstance of the visit and for follow-up with them and/or the need for any referrals to a consulting specialist. The emergency department will also refer you to a specialist when appropriate. This referral assures that you have the opportunity for followup care with a specialist. All of these measure are taken in an effort to provide you with optimal care, which includes your followup. Under all circumstances we always encourage you to contact your private physician who remains a resource for coordinating your care. When calling for followup care, please make the office aware that this follow-up is from your recent emergency room visit. If for any reason you are refused follow-up, please contact the [facility] emergency department at and asked to speak to the emergency department charge nurse. Push fluids clear liquids as directed medications as prescribed follow-up primary medical doctor in 24 hours return as needed as discussed - My Orders Last 24 Hours: My Active Orders 09/07/17 20:54 EKG Documentation Completion [RC] STAT 09/07/17 21:39 CULTURE URINE [RM] Stat UA W/MICROSCOPIC [URIN] Stat 09/07/17 22:30 Sodium Chloride 0.9% [Normal Saline] 1,000 ml IV .Bolus - Assessment/Plan Last 24 Hours: My Active Orders 09/07/17 20:54 EKG Documentation Completion [RC] STAT 09/07/17 21:39 CULTURE URINE [RM] Stat UA W/MICROSCOPIC [URIN] Stat 09/07/17 22:30 Sodium Chloride 0.9% [Normal Saline] 1,000 ml IV .Bolus
[2017-09-07 22:12] LABS: CHLORIDE,CL 100 mmol/L (98-107); SODIUM,NA 136 mmol/L (136-145)
[2017-09-07] MEDS ORDERED: Acetaminophen 325 MG Tab PO ONE (22:44)
[2017-09-07 23:43] VITALS: BP 124/72
== END 2017-09-07 23:47 | disposition home or self-care (01) ==
LOC: MW.ED 20:45
DX: E11.65 Type 2 diabetes mellitus with hyperglycemia (principal); Z79.84 Long term (current) use of oral hypoglycemic drugs
CPT/HCPCS: 36415; 80053; 81001; 85025; 87086; 93005; 96360; 96361; 99285; A9270; J7040

== ENCOUNTER 2018-01-13 07:31 | Day surgery (SDC) | payer MEDICAID, OTHER ==
[~2018-01-13 07:31] MED LIST: Lactated Ringers 1,000 ML IV SCH; Lidocaine 2% 5 ML SDV ONE; Propofol 200 MG/20 ML SDV ONE; fentaNYL 100 MCG/2 ML SDV ONE
--- NOTE | 2018-01-13 08:39 | PCM.PREANE ---
Preanesthetic Assessment - Procedure Proposed Procedure: Colonoscopy - Anesthesia/Transfusion/Family Hx Anesthesia History: Prior Anesthesia Without Reaction Family History of Anesthesia Reaction: No Transfusion History: No Prior Transfusion(s) Intubation History: Unknown Additional History: TIA 20 yr ago at high stress time - no residual; hx EtOH abuse, occasoional use - Review of Systems General: Other (blood noted on stool test) Pulmonary: Other (smoker) Cardiovascular: No Symptoms Gastrointestinal: Other (GERD) Other: Reports: Diabetes (type II not well controllled on oral agents) - Physical Assessment NPO Status Date: 01/12/18 NPO Status Time: 23:00 O2 Sat by Pulse Oximetry: 97 Respiratory Rate: 18 Vital Signs: Last Vital Signs Temp 97.7 F 01/13/18 08:21 Pulse 77 01/13/18 08:21 Resp 18 01/13/18 08:21 BP 114/78 01/13/18 08:21 Pulse Ox 97 01/13/18 08:21 Height: 5 ft 6 in Weight: 170 lb ASA Class: 3 Mental Status: Alert & Oriented x3 Airway Class: Mallampati = 2 Dentition: Reports: Missing Tooth/Teeth (upper frontals), Caries Thyro-Mental Finger Breadths: 4 Mouth Opening Finger Breadths: 3 ROM/Head Extension: Limited/Partial (ful neck) Lungs: Clear to Auscultation, Normal Respiratory Effort Cardiovascular: Regular Rate, Regular Rhythm, No Murmurs - Allergies Allergies/Adverse Reactions: Allergies Allergy/AdvReac Type Severity Reaction Status Date / Time No Known Allergies Allergy Verified 01/09/18 13:07 - Blood Blood Available: No Product(s) Available: None - Anesthesia Plan Pre-Op Medication Ordered: None - Acknowledgements Anesthesia Type Planned: MAC Pt an Appropriate Candidate for the Planned Anesthesia: Yes Alternatives and Risks of Anesthesia Discussed w Pt/Guardian: Yes Pt/Guardian Understands and Agrees with Anesthesia Plan: Yes PreAnesthesia Questionnaire HEENT History: Reports: Impaired Vision Other HEENT History: wears glasses, upper denture Cardiovascular History: Reports: High Cholesterol Respiratory History: Reports: None Gastrointestinal History: Reports: None Genitourinary History: Reports: None SIZE STAMPER History: Reports: Musculoskeletal History: Reports: Fracture Other Musculoskeletal History: hx fx rt ankle and toes Neurological History: Reports: TIA Psychiatric History: Reports: None Endocrine/Metabolic History: Reports: Diabetes, Type II, Hypothyroidism Hematologic History: Reports: Anemia Oncologic (Cancer) History: - Infectious Disease History Infectious Disease History: Reports: Chicken Pox - Past Surgical History Head Surgeries/Procedures: Reports: None Cardiovascular Surgical History: Reports: None Female Surgical History: Reports: Section Endocrine Surgical History: Reports: None Neurological Surgical History: Reports: None - SUBSTANCE USE Smoking Status *Q: Current Some Day Smoker Tobacco Use Within Last Twelve Months: Cigarettes Recreational Drug Use History: No - HOME MEDS Home Medications: Home Meds Cholecalciferol (Vitamin D3) [Vitamin D3] 1,000 units PO DAILY 01/09/18 [History ] Furosemide 1 tab PO DAILY 01/09/18 [History] Gabapentin [Neurontin] 1 tab PO BID 01/09/18 [History] Glimepiride 4 mg PO BID 01/09/18 [History] Hydrocodone/Acetaminophen [Hydrocodon-Acetaminophen 5-325] 1 tab PO ASDIRECTED PRN 01/09/18 [History] Levothyroxine Sodium [Synthroid] 0.5 tab PO DAILY 01/09/18 [History] [place]-3/DHA/Epa/Fish Oil [Fish Oil 1,000 mg Softgel] 1 tab PO DAILY 01/09/18 [ History] Saxagliptin HCl [Onglyza] 2 tab PO DAILY 01/09/18 [History] metFORMIN HCl [Metformin HCl ER] 2 tab PO ASDIRECTED 01/09/18 [History] traMADol HCl [Tramadol HCl] 1 tab PO ASDIRECTED PRN 01/09/18 [History] - CURRENT (IN HOUSE) MEDS Current Meds: Current Medications Lactated Ringer's (Ringers, Lactated) 1,000 mls @ 125 mls/hr IV ASDIRECTED AJ Last Admin: 01/13/18 08:21 Dose: 125 mls/hr Discontinued Medications Fentanyl (Sublimaze) Confirm Administered Dose 100 mcg .ROUTE .STK-MED ONE Stop: 01/13/18 07:06 Lidocaine (Xylocaine-Mpf 2%) Confirm Administered Dose 5 ml .ROUTE .STK-MED ONE Stop: 01/13/18 07:06 Propofol (Diprivan 20 Ml) Confirm Administered Dose 400 mg .ROUTE .STK-MED ONE Stop: 01/13/18 07:06
[2018-01-13] MEDS ORDERED: Propofol 200 MG/20 ML SDV ONE ×2 (09:51→10:05)
--- NOTE | 2018-01-13 10:20 | PCM.OPNOTE ---
- General Post-Op/Procedure Note Date of Surgery/Procedure: 01/13/18 Operative Procedure(s): Colonoscopy with biopsy, proximal ascending colon and distal ascending colon mass, biopsy, sigmoid mass and rectal polypectomy. Pre Op Diagnosis: Hemoccult-positive stool Post-Op Diagnosis: Ascending colon mass 2, sigmoid mass, rectal polyp. Anesthesia Technique: MAC (ASA III) Primary Surgeon: Kimani Reaves Condition: Good Free Text/Narrative:: DICTATION [id number] CPT CODE [id number]
[2018-01-13] MEDS ORDERED: Lactated Ringers 1,000 ML IV SCH (10:30)
--- NOTE | 2018-01-13 10:42 | PCM.POSTAN ---
POST ANESTHESIA ASSESSMENT - MENTAL STATUS Mental Status: Alert, Oriented - RESPIRATORY Respiratory Status: Respiratory Rate WNL, Airway Patent, O2 Saturation Stable - CARDIOVASCULAR CV Status: Pulse Rate WNL, Blood Pressure Stable - GASTROINTESTINAL GI Status: No Symptoms - POST OP HYDRATION Hydration Status: Adequate & Stable
[2018-01-13] MEDS ORDERED: 50% Dextrose in Water 50 ML Syringe ONE (10:53)
[2018-01-13 11:15] VITALS: BP 112/64
--- NOTE | 2018-01-13 11:18 | PCM48HPAN ---
Post Anesthesia Note - EVALUATION WITHIN 48HRS OF ANESTHETIC Vital Signs in Normal Range: Yes Patient Participated in Evaluation: Yes Respiratory Function Stable: Yes Airway Patent: Yes Cardiovascular Function Stable: Yes Hydration Status Stable: Yes Pain Control Satisfactory: Yes Nausea and Vomiting Control Satisfactory: Yes Mental Status Recovered: Yes Resp Rate: 14
--- NOTE | 2018-01-13 12:05 | OR ---
SURGEON: Kimani Reaves M.D. DATE OF PROCEDURE: 01/13/2018 OPERATION PERFORMED: Colonoscopy with biopsy of proximal ascending colon mass and biopsy distal ascending colon mass and rectal polypectomy. ANESTHESIA: MAC. ASA CLASSIFICATION: III. PREOPERATIVE DIAGNOSIS: Hemoccult positive stool. POSTOPERATIVE DIAGNOSES: 1. Proximal ascending colon mass encompassing 20% to 25% of the lumen. 2. Distal ascending colon mass. 3. Rectal polyp. 4. Poor prep. DESCRIPTION OF PROCEDURE: The patient was taken to the endoscopy room, positioned on the endoscopy table in the left lateral decubitus position. Time-out was called for appropriate identification of the patient and procedure. Monitored anesthesia care was provided. The colonoscope was inserted into the rectum and advanced without difficulty to the cecum where the colonoscope was retroflexed to visualize the ascending colon from below. The colonoscope was then straightened and slowly withdrawn. In the proximal ascending colon polyp, there is a mass that encompasses 20% to 25% of the lumen. Multiple biopsies at this area were taken. Another smaller mass was encountered in the distal ascending colon and separate biopsies of this were obtained. The hepatic flexure, transverse colon, splenic flexure, descending colon, showed no tumors, polyps, diverticula, or angiodysplastic changes. Another polyp was encountered in the sigmoid colon and separate biopsies of this were obtained as well as a rectal polypectomy being performed. Once the colonoscope was withdrawn to the rectum, it was retroflexed to visualize the anal orifice from above. No tumors or polyps were seen and there were no acute hemorrhoidal changes. The colonoscope was then straightened, the rectum aspirated, and the colonoscope was removed. The patient tolerated the procedure well and was taken to recovery room in stable condition. ISIDRA VICENTE /[id number]
== END 2018-01-13 12:15 | disposition home or self-care (01) ==
LOC: MW.SDS 07:31
PROVIDERS: ATTEND Surgery
DX: D37.4 Neoplasm of uncertain behavior of colon (principal); D12.2 Benign neoplasm of ascending colon; D12.5 Benign neoplasm of sigmoid colon; D12.8 Benign neoplasm of rectum; E11.9 Type 2 diabetes mellitus without complications; F17.210 Nicotine dependence, cigarettes, uncomplicated; E03.9 Hypothyroidism, unspecified; Z79.84 Long term (current) use of oral hypoglycemic drugs; Z79.899 Other long term (current) drug therapy
CPT/HCPCS: 45380; 88305; J2704; J3010; J7060; J7120; 00811

== ENCOUNTER 2019-05-16 09:59 | Emergency (ER) | payer MEDICAID, OTHER ==
--- NOTE | 2019-05-16 10:24 | EDM.PDOC ---
ED HPI GENERAL MEDICAL PROBLEM - General Chief Complaint: Respiratory Problem Stated Complaint: FLU Time Seen by Provider: 05/16/19 10:23 Source of Information: Reports: Patient History Limitations: Reports: No Limitations - History of Present Illness INITIAL COMMENTS - FREE TEXT/NARRATIVE: HISTORY AND PHYSICAL: History of present illness: Patient is a 63-year-old female presents to the ED with complaint of flu-like symptoms x 3 days. Patient states she has had a cough, subjective fevers, nasal congestion, shortness of breath. She states she has felt nausea but denies vomiting or diarrhea. She has taken aspirin OTC without relief of symptoms. Past medical history significant for diabetes, Review of systems: As per history of present illness and below otherwise all systems reviewed and negative. Past medical history: As per history of present illness and as reviewed below otherwise noncontributory. Surgical history: As per history of present illness and as reviewed below otherwise noncontributory. Social history: No reported history of drug or alcohol abuse. Family history: As per history of present illness and as reviewed below otherwise noncontributory. Physical exam: General: Patient sitting comfortably in no acute distress and nontoxic appearing HEENT: Atraumatic, normocephalic, pupils reactive, negative for conjunctival pallor or scleral icterus, mucous membranes moist, throat clear, neck supple, nontender, trachea midline. No meningeal signs. Lungs: Clear to auscultation, breath sounds equal bilaterally, chest nontender. Heart: S1S2, regular, negative for clicks, rubs, or overt murmur. Abdomen: Soft, nondistended, nontender. Negative for masses or hepatosplenomegaly. Negative for costovertebral tenderness. No rigidity, rebound , guarding. Pelvis: Stable nontender. Genitourinary: Deferred. Rectal: Deferred. Extremities: Atraumatic, negative for cords or calf pain. Neurovascular unremarkable. Neuro: Awake, alert, oriented. Cranial nerves II through XII unremarkable. Cerebellum unremarkable. Motor and sensory unremarkable throughout. Exam nonfocal. Notes: Diagnostics: Influenza, CBC, CMP, CXR Therapeutics: 500mL NS IV Prescriptions: none - outside window for tamiflu Impression: Influenza A Plan: 1. Drink plenty of fluids and alternate tylenol and motrin as discussed. 2. Follow up with primary care provider 3. Return to ED as needed as discussed Definitive disposition and diagnosis as appropriate pending reevaluation and review of above. body aches Pain Score (Numeric/FACES): 7 - Related Data Allergies Allergy/AdvReac Type Severity Reaction Status Date / Time No Known Allergies Allergy Verified 01/09/18 13:07 Home Meds: Home Meds Glimepiride 8 mg PO BID 01/09/18 [History] Levothyroxine Sodium [Synthroid] 0.5 tab PO DAILY 01/09/18 [History] Saxagliptin HCl [Onglyza] 2 tab PO DAILY 01/09/18 [History] metFORMIN HCl [Metformin ER Gastric] 4 tab PO ASDIRECTED 01/09/18 [History] traMADol HCl [Tramadol HCl] 1 tab PO ASDIRECTED PRN 01/09/18 [History] Past Medical History HEENT History: Reports: Impaired Vision Other HEENT History: wears glasses, upper denture Cardiovascular History: Reports: High Cholesterol Respiratory History: Reports: None Gastrointestinal History: Reports: None Genitourinary History: Reports: None [employer] History: Reports: Musculoskeletal History: Reports: Fracture Other Musculoskeletal History: hx fx rt ankle and toes Neurological History: Reports: TIA Psychiatric History: Reports: None Endocrine/Metabolic History: Reports: Diabetes, Type II, Hypothyroidism Hematologic History: Reports: Anemia Oncologic (Cancer) History: - Infectious Disease History Infectious Disease History: Reports: Chicken Pox - Past Surgical History Head Surgeries/Procedures: Reports: None Cardiovascular Surgical History: Reports: None Female Surgical History: Reports: Section Endocrine Surgical History: Reports: None Neurological Surgical History: Reports: None Social & Family History - Family History Family Medical History: Noncontributory Cardiac: Reports: Hypertension Other Cardiac Family History: mother - Tobacco Use Smoking Status *Q: Former Smoker Used Tobacco, but Quit: Yes Month/Year Tobacco Last Used: 01/2019 - Caffeine Use Caffeine Use: Reports: Coffee Other Caffeine Use: 1 cup/day - Recreational Drug Use Recreational Drug Use: No ED ROS GENERAL - Review of Systems Review Of Systems: Comprehensive ROS is negative, except as noted in HPI. ED EXAM, GENERAL - Physical Exam Exam: See Below (see dictation) Course - Vital Signs Last Recorded V/S: Last Vital Signs Temp 97.1 F 05/16/19 10:08 Pulse 105 H 05/16/19 11:06 Resp 16 05/16/19 11:06 BP 111/70 05/16/19 11:06 Pulse Ox 95 05/16/19 11:06 - Orders/Labs/Meds Orders: Active Orders 24 hr Category Date Time Status Sodium Chloride 0.9% [Saline Flush] Med 05/16/19 10:34 Active 10 ml FLUSH ASDIRECTED PRN Sodium Chloride 0.9% [Saline Flush] Med 05/16/19 10:34 Active 2.5 ml FLUSH ASDIRECTED PRN Saline Lock Insert [OM.PC] Stat Oth 05/16/19 10:34 Ordered Medication Orders Sodium Chloride (Saline Flush) 10 ml FLUSH ASDIRECTED PRN PRN Reason: Keep Vein Open Last Admin: 05/16/19 11:05 Dose: 10 ml Sodium Chloride (Saline Flush) 2.5 ml FLUSH ASDIRECTED PRN PRN Reason: Keep Vein Open Last Admin: 05/16/19 11:05 Dose: 2.5 ml Labs: Laboratory Tests 05/16/19 05/16/19 Range/Units 10:42 10:42 WBC 6.49 (4.0-11.0) K/uL RBC 4.78 (4.30-5.90) M/uL Hgb 13.8 (12.0-16.0) g/dL Hct 40.5 (36.0-46.0) % MCV 84.7 (80.0-98.0) fL MCH 28.9 (27.0-32.0) pg MCHC 34.1 (31.0-37.0) g/dL RDW Std Deviation 41.8 (28.0-62.0) fl RDW Coeff of Leon 14 (11.0-15.0) % Plt Count 227 (150-400) K/uL MPV 10.10 (7.40-12.00) fL Neut % (Auto) 70.9 (48.0-80.0) % Lymph % (Auto) 21.4 (16.0-40.0) % [place] % (Auto) 6.8 (0.0-15.0) % Eos % (Auto) 0.6 (0.0-7.0) % Baso % (Auto) 0.3 (0.0-1.5) % Neut # (Auto) 4.6 (1.4-5.7) K/uL Lymph # (Auto) 1.4 (0.6-2.4) K/uL [place] # (Auto) 0.4 (0.0-0.8) K/uL Eos # (Auto) 0.0 (0.0-0.7) K/uL Baso # (Auto) 0.0 (0.0-0.1) K/uL Nucleated RBC % 0.0 /100WBC Nucleated RBCs # 0 K/uL Sodium 136 (136-145) mmol/L Potassium 3.8 (3.5-5.1) mmol/L Chloride 100 (98-107) mmol/L Carbon Dioxide 28.0 (21.0-32.0) mmol/L BUN 9 (7.0-18.0) mg/dL Creatinine 0.7 (0.6-1.0) mg/dL Est Cr Clr Drug Dosing 75.94 mL/min Estimated GFR (MDRD) > 60.0 ml/min Glucose 213 H (74-106) mg/dL Calcium 9.1 (8.5-10.1) mg/dL Meds: Medications Generic Name Dose Route Start Last Admin Trade Name Freq PRN Reason Stop Dose Admin Sodium Chloride 10 ml 05/16/19 10:34 05/16/19 11:05 Saline Flush FLUSH 10 ml ASDIRECTED PRN Administration Keep Vein Open Sodium Chloride 2.5 ml 05/16/19 10:34 05/16/19 11:05 Saline Flush FLUSH 2.5 ml ASDIRECTED PRN Administration Keep Vein Open Discontinued Medications Generic Name Dose Route Start Last Admin Trade Name Freq PRN Reason Stop Dose Admin Sodium Chloride 1,000 mls @ 999 mls/hr 05/16/19 10:34 05/16/19 11:05 Normal Saline IV 05/16/19 11:34 999 mls/hr STAT ONE Administration Departure - Departure Time of Disposition: 12:07 Disposition: Home, Self-Care 01 Condition: Good Clinical Impression: Influenza A - Discharge Information Referrals: Ana Luisa Charles MD [Primary Care Provider] - Forms: ED Department Discharge Additional Instructions: The following information is given to patients seen in the emergency department who are being discharged to home. This information is to outline your options for follow-up care. We provide all patients seen in our emergency department with a follow-up referral. The need for follow-up, as well as the timing and circumstances, are variable depending upon the specifics of your emergency department visit. If you don't have a primary care physician on staff, we will provide you with a referral. We always advise you to contact your personal physician following an emergency department visit to inform them of the circumstance of the visit and for follow-up with them and/or the need for any referrals to a consulting specialist. The emergency department will also refer you to a specialist when appropriate. This referral assures that you have the opportunity for follow-up care with a specialist. All of these measure are taken in an effort to provide you with optimal care, which includes your follow-up. Under all circumstances we always encourage you to contact your private physician who remains a resource for coordinating your care. When calling for follow-up care, please make the office aware that this follow-up is from your recent emergency room visit. If for any reason you are refused follow-up, please contact the [facility] at and asked to speak to the emergency department charge nurse. [facility] [address] [place] [address] [place] [address] 1. Drink plenty of fluids and alternate tylenol and motrin as discussed. 2. Follow up with primary care provider 3. Return to ED as needed as discussed Sepsis Event Note - Evaluation Sepsis Screening Result: Possible Sepsis Risk - Focused Exam Vital Signs: Vital Signs Temp Pulse Resp BP Pulse Ox 05/16/19 11:06 105 H 16 111/70 95 05/16/19 10:08 97.1 F 139 H 22 H 125/94 H Date Exam was Performed: 05/16/19 Time Exam was Performed: 12:06 - My Orders Last 24 Hours: My Active Orders 05/16/19 10:34 Sodium Chloride 0.9% [Saline Flush] 10 ml FLUSH ASDIRECTED PRN Sodium Chloride 0.9% [Saline Flush] 2.5 ml FLUSH ASDIRECTED PRN Saline Lock Insert [OM.PC] Stat - Assessment/Plan Last 24 Hours: My Active Orders 05/16/19 10:34 Sodium Chloride 0.9% [Saline Flush] 10 ml FLUSH ASDIRECTED PRN Sodium Chloride 0.9% [Saline Flush] 2.5 ml FLUSH ASDIRECTED PRN Saline Lock Insert [OM.PC] Stat
[2019-05-16] MEDS ORDERED: Sodium Chloride 0.9% 10 ML Syringe FLUSH PRN (10:34)
[2019-05-16] MEDS ORDERED: Sodium Chloride 0.9% 1,000 ML IV ONE (10:34)
[2019-05-16] MEDS ORDERED: Sodium Chloride 0.9% 2.5 ML Syringe FLUSH PRN (10:34)
[2019-05-16 11:07] VITALS: BP 111/70; PULSE 105
[2019-05-16 11:19] LABS: BLOOD UREA NITROGEN,BUN 9 mg/dL (7.0-18.0); CHLORIDE,CL 100 mmol/L (98-107); GLUCOSE RANDOM 213 mg/dL (74-106); POTASSIUM,K 3.8 mmol/L (3.5-5.1); SODIUM,NA 136 mmol/L (136-145)
--- NOTE | 2019-05-16 12:00 | CR ---
Chest: 2 views of the chest were obtained. Comparison: Prior chest x-ray of 04/29/17. Heart size and mediastinum are normal. Lung markings are slightly increased which are felt to be technique related as well as chronic. No acute parenchymal changes seen. Several slight nodular densities are noted most likely due to granulomatous change. Impression: 1. Nothing acute is suspected. Diagnostic code #2 This report was dictated in [place] Standard Time
== END 2019-05-16 12:33 | disposition home or self-care (01) ==
LOC: MW.ED 09:59
DX: J10.1 Influenza due to other identified influenza virus with other respiratory manifestations (principal); E11.9 Type 2 diabetes mellitus without complications; E03.9 Hypothyroidism, unspecified; Z86.73 Personal history of transient ischemic attack (TIA), and cerebral infarction without residual deficits; Z79.84 Long term (current) use of oral hypoglycemic drugs; Z87.891 Personal history of nicotine dependence
CPT/HCPCS: 36415; 71046; 80048; 85025; 87804; 96360; 99283; J7030; 99284

== ENCOUNTER 2019-06-26 23:52 | Emergency (ER) | payer MEDICAID, OTHER ==
[2019-06-27] MEDS ORDERED: Ibuprofen 600 MG Tab PO ONE (00:37)
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
[2019-06-27 00:52] LABS: BLOOD UREA NITROGEN,BUN 13 mg/dL (7.0-18.0); CARBON DIOXIDE,CO2 24.6 mmol/L (21.0-32.0); CHLORIDE,CL 104 mmol/L (98-107); GLUCOSE RANDOM 205 mg/dL (74-106); POTASSIUM,K 3.5 mmol/L (3.5-5.1); SODIUM,NA 140 mmol/L (136-145)
--- NOTE | 2019-06-27 01:44 | CR ---
INDICATION: Shortness of breath TECHNIQUE: Chest 2 views COMPARISON: Chest x-ray 05/16/2019 FINDINGS: Cardiovascular and mediastinum: Normal heart size with mild aortic tortuosity and atherosclerotic calcification. Calcified right hilar lymph nodes. Lungs and pleural spaces: No pleural effusion or pneumothorax. Calcified granuloma left lung. No focal consolidation proved Bones and soft tissues: No significant findings. IMPRESSION: No acute pulmonary consolidation. Old granulomatous disease. Dictated by Justice Munguia MD @ Jun 27 2019 1:42AM Signed by Dr. Justice Munguia @ Jun 27 2019 1:43AM
[2019-06-27 01:59] VITALS: BP 142/79; PULSE 89
== END 2019-06-27 01:57 | disposition home or self-care (01) ==
LOC: MW.ED 23:52
DX: R55 Syncope and collapse (principal); F17.210 Nicotine dependence, cigarettes, uncomplicated; E78.00 Pure hypercholesterolemia, unspecified; E11.9 Type 2 diabetes mellitus without complications; E03.9 Hypothyroidism, unspecified; Z79.84 Long term (current) use of oral hypoglycemic drugs; Z79.899 Other long term (current) drug therapy; Z86.73 Personal history of transient ischemic attack (TIA), and cerebral infarction without residual deficits
CPT/HCPCS: 36415; 71046; 80053; 81003; 84484; 85025; 93005; 99284; A9270; 99283

== ENCOUNTER 2019-12-02 04:02 | Emergency (ER) | payer MEDICAID, OTHER ==
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
[2019-12-02] MEDS ORDERED: Acetaminophen 325 MG Tab PO ONE (05:00)
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
[2019-12-02 06:21] VITALS: BP 126/82; PULSE 109
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
== END 2019-12-02 06:53 | disposition left against medical advice (07) ==
LOC: MW.ED 04:02 → MERGE 04:02 → MW.ED 06:53
DX: S06.309A Unspecified focal traumatic brain injury with loss of consciousness of unspecified duration, initial encounter (principal); S81.011A Laceration without foreign body, right knee, initial encounter; S30.811A Abrasion of abdominal wall, initial encounter; E11.9 Type 2 diabetes mellitus without complications; Z79.84 Long term (current) use of oral hypoglycemic drugs; Y04.0XXA Assault by unarmed brawl or fight, initial encounter
CPT/HCPCS: 70450; 70486; 73562; 99284; A9270

== ENCOUNTER 2019-12-02 07:38 | Emergency (ER) | payer MEDICAID, OTHER ==
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
[2019-12-02 08:41] VITALS: BP 110/68; PULSE 108
== END 2019-12-02 08:46 ==
LOC: MERGE 07:38 → MW.ED 07:38
DX: S06.389A Contusion, laceration, and hemorrhage of brainstem with loss of consciousness of unspecified duration, initial encounter (principal); E11.9 Type 2 diabetes mellitus without complications; Z79.84 Long term (current) use of oral hypoglycemic drugs; X58.XXXA Exposure to other specified factors, initial encounter
CPT/HCPCS: 99284

== ENCOUNTER 2020-06-19 10:40 | Emergency (ER) | payer MEDICAID, OTHER ==
[2020-06-19] MEDS ORDERED: Ketorolac 60 MG/2 ML SDV IM ONE (11:07)
[2020-06-19] MEDS ORDERED: Sodium Chloride 0.9% 10 ML Syringe FLUSH PRN (11:37)
[2020-06-19] MEDS ORDERED: Sodium Chloride 0.9% 2.5 ML Syringe FLUSH PRN (11:37)
[2020-06-19 11:50] LABS: CORONAVIRUS COVID-19 NAA NEGATIVE (NEGATIVE); INFLUENZA A NAA NEGATIVE (NEGATIVE); INFLUENZA B NAA NEGATIVE (NEGATIVE)
--- NOTE | 2020-06-19 12:23 | PCM.EKG ---
#1 Interpretation EKG Interpretation Comments: Heart rate = 78 bpm, normal sinus rhythm, normal QRS interval, no STEMI. EKG and rhythm strip interpreted by me at 1133
[2020-06-19 12:37] LABS: BLOOD UREA NITROGEN,BUN 21 mg/dL (7.0-18.0); CARBON DIOXIDE,CO2 17.7 mmol/L (21.0-32.0); CHLORIDE,CL 100 mmol/L (98-107); GLUCOSE RANDOM 327 mg/dL (74-106); POTASSIUM,K 4.2 mmol/L (3.5-5.1); SODIUM,NA 131 mmol/L (136-145)
--- NOTE | 2020-06-19 12:37 | CR ---
HISTORY: Chest pain. Shortness of breath. TECHNIQUE: Portable frontal view the chest. COMPARISON: Chest x-ray 06/27/2019. FINDINGS: Interstitial thickening bilaterally. No focal airspace consolidation. Small calcified granuloma in the left upper lobe. Cardiomediastinal silhouette size and contours are normal. Calcified left hilar lymph nodes. IMPRESSION: Interstitial thickening bilaterally may be from infection, inflammatory process, or interstitial edema. Dictated by Fernando Saavedra MD @ Jun 19 2020 12:34PM Signed by Dr. Fernando Saavedra @ Jun 19 2020 12:35PM
[2020-06-19] MEDS ORDERED: Iopamidol 755 MG/ML 500 ML Multipack Bottle IVPUSH STA (14:02)
--- NOTE | 2020-06-19 14:50 | EDM.PDOC ---
ED HPI GENERAL MEDICAL PROBLEM - General Chief Complaint: Respiratory Problem Stated Complaint: SOB COUGHING BODY ACHES Time Seen by Provider: 06/19/20 10:46 Source of Information: Reports: Patient History Limitations: Reports: No Limitations - History of Present Illness INITIAL COMMENTS - FREE TEXT/NARRATIVE: HISTORY AND PHYSICAL: History of present illness: Patient is a 64-year-old female who presents to the ED today with concern of generalized body aches, weakness, malaise, over the past 3 days. Patient states that her children were concerned so she came to the emergency room for further evaluation. Patient states that she feels as if she has had chills at home but states that she has not checked a temperature. States she has a history of type 2 diabetes [id number], hypertension, and hyperlipidemia. States that she has not taken anything for her symptoms. Patient states her most prominent symptom is the body aches. Patient denies chest pain, shortness of breath, or cough. Denies headache, neck stiff ness, change in vision, syncope, or near syncope. Denies nausea, vomiting, abdominal pain, diarrhea, constipation, or dysuria. Has not noted any blood in urine or stool. Patient has been eating and drinking appropriately. Review of systems: As per history of present illness and below otherwise all systems reviewed and negative. Past medical history: As per history of present illness and as reviewed below otherwise noncontributory. Surgical history: As per history of present illness and as reviewed below otherwise noncontributory. Social history: See social history for further information Family history: As per history of present illness and as reviewed below otherwise noncontributory. Physical exam: General: Patient is alert, oriented, and in no acute distress. Patient sitting comfortably on exam table. Vitals stable and reviewed by me. HEENT: Atraumatic, normocephalic, pupils equal and reactive bilaterally, negative for conjunctival pallor or scleral icterus, mucous membranes moist, TMs normal bilaterally, throat clear, neck supple, nontender, trachea midline. No drooling or trismus noted. No meningeal signs. No hot potato voice noted. Lungs: Clear to auscultation, breath sounds equal bilaterally, chest nontender. Heart: S1S2, regular rate and rhythm without overt murmur Abdomen: Soft, nondistended, nontender. Negative for masses or hepatosplenomegaly. Negative for costovertebral tenderness. Pelvis: Stable nontender. Genitourinary: Deferred. Rectal: Deferred. Skin: Intact, warm, dry. No lesions or rashes noted. Extremities: Atraumatic, negative for cords or calf pain. Neurovascular unremarkable. Neuro: Awake, alert, oriented. Cranial nerves II through XII unremarkable. Cerebellum unremarkable. Motor and sensory unremarkable throughout. Exam nonfocal. Notes: Dr. Kaur verbally involved in patient care including disposition for patient. On initial exam, patient is vitally stable, and well-appearing. While awaiting diagnostics, patient has an episode of sharp right arm pain and appears uncomfortable holding right arm. This subsides after approximately 10 minutes and she expresses improvement of her symptoms. Will add additional cardiac workup including delta troponin. Patient states that she has also been having some shortness of breath that she forgot to mention on initial HPI. Patient states that she is also had some weight loss and has lost approximately 15 pounds without meaning to as well as having night sweats. COVID19 testing negative. I did call and speak to the and discussed patient's symptoms as well as CT findings and concern for possible tuberculosis. Per the direction of the , patient is to provide 3 sputum samples and received a QuantiFERON gold analysis. Patient performed her first sputum sample today in the ED and has been provided with 2 kits to perform sputum samples at home. Per the , patient is to isolate at home and use a mask if she were to come in contact with people. Thoroughly discussed the directions of performing these test at home and strict return precautions thoroughly discussed with patient. Also discussed with patient that she should follow-up with her primary care provider in regards to her findings today, and if her tuberculosis testing is negative, for further follow-up with her primary care provider. All incidental findings of imaging today discussed with patient and the importance to have this followed up with her primary care provider. Patient expresses improvement of symptoms today in the ED. Admission for observation was offered to patient but she declines at this time. All risks versus benefits discussed with patient and expresses understanding. She remains vitally stable throughout stay in emergency room. Voices understanding and is agreeable to plan of care. Denies any further questions or concerns at this time. Diagnostics: EKG x 2, CBC, CMP, UA, chest x-ray, troponin x 2, D-dimer, chest CT, QuantiFERON gold, sputum sample stain and culture, COVID-19/influenza Therapeutics: Saline, Toradol Prescription: None Impression: Granulomatous lung disease Hyperglycemia Plan: 1. Quarantine in your home until results from testing have returned. If you are around people, ensure that you are wearing a mask. Avoid being around children. 2. Perform the sputum samples in the morning tomorrow morning, and Tuesday morning, as thoroughly discussed with you. Return each sample to the lab immediately after sputum has been collected on each day. 3. Follow-up with your primary care provider as discussed. Return to the ED as needed and as discussed. Definitive disposition and diagnosis as appropriate pending reevaluation and review of above. Headache Pain Score (Numeric/FACES): 4 - Related Data Allergies Allergy/AdvReac Type Severity Reaction Status Date / Time No Known Allergies Allergy Verified 12/03/19 14:35 Home Meds: Home Meds Glimepiride 8 mg PO BID 01/09/18 [History] Levothyroxine Sodium [Synthroid] 0.5 tab PO DAILY 01/09/18 [History] Saxagliptin HCl [Onglyza] 2 tab PO DAILY 01/09/18 [History] metFORMIN HCl [Metformin ER Gastric] 4 tab PO ASDIRECTED 01/09/18 [History] traMADol HCl [Tramadol HCl] 1 tab PO ASDIRECTED PRN 01/09/18 [History] Albuterol [Ventolin HFA] 1 puff INH Q4H #1 inhaler 05/16/19 [Rx] Glimepiride 4 mg PO DAILY 12/02/19 [History] Levothyroxine [Synthroid] 25 mcg PO DAILY 12/02/19 [History] Saxagliptin HCl [Onglyza] 5 mg PO DAILY 12/02/19 [History] metFORMIN [Glucophage] 1,000 mg PO BID 12/02/19 [History] Past Medical History HEENT History: Reports: Impaired Vision, None Other HEENT History: wears glasses, upper denture Cardiovascular History: Reports: High Cholesterol, None Respiratory History: Reports: None Gastrointestinal History: Reports: None Genitourinary History: Reports: None [employer] History: Reports: Musculoskeletal History: Reports: Fracture, None Other Musculoskeletal History: hx fx rt ankle and toes Neurological History: Reports: None, TIA Psychiatric History: Reports: None Endocrine/Metabolic History: Reports: Diabetes, Type II, Hyperthyroidism, Hypothyroidism Insulin Pump Model and Title Examiner: N/A Hematologic History: Reports: Anemia, None Immunologic History: Reports: None Oncologic (Cancer) History: Reports: Colon, None Dermatologic History: Reports: None - Infectious Disease History Infectious Disease History: Reports: Chicken Pox, None - Past Surgical History Head Surgeries/Procedures: Reports: None HEENT Surgical History: Reports: None Cardiovascular Surgical History: Reports: None Respiratory Surgical History: Reports: None GI Surgical History: Reports: Other (See Below) Other GI Surgeries/Procedures: part of colon resected from cancer Female Surgical History: Reports: Section, None Endocrine Surgical History: Reports: None Neurological Surgical History: Reports: None Musculoskeletal Surgical History: Reports: None Oncologic Surgical History: Reports: Other (See Below) Other Oncologic Surgeries/Procedures: colon resection Dermatological Surgical History: Reports: None Social & Family History - Family History Family Medical History: No Pertinent Family History Cardiac: Reports: Hypertension Other Cardiac Family History: mother - Caffeine Use Caffeine Use: Reports: Coffee, Tea Other Caffeine Use: 1 cup/day - Recreational Drug Use Recreational Drug Use: No ED ROS GENERAL - Review of Systems Review Of Systems: Comprehensive ROS is negative, except as noted in HPI. ED EXAM, GENERAL - Physical Exam Exam: See Below (see dictation) Course - Vital Signs Last Recorded V/S: Last Vital Signs Temp 98.3 F 06/19/20 10:49 Pulse 94 06/19/20 18:12 Resp 17 06/19/20 18:12 BP 123/85 06/19/20 18:12 Pulse Ox 96 06/19/20 18:12 - Orders/Labs/Meds Orders: Active Orders 24 hr Category Date Time Status CULTURE [employer] AND SMEAR [MREF] Routine Lab 06/19/20 17:58 Received QUANTIFERON TB PLUS [REF] Stat Lab 06/19/20 16:32 Received Saline Lock Insert [OM.PC] Stat Oth 06/19/20 11:37 Ordered Labs: Laboratory Tests 06/19/20 06/19/20 06/19/20 Range/Units 10:55 11:21 11:48 WBC 6.71 (4.0-11.0) K/uL RBC 4.52 (4.30-5.90) M/uL Hgb 13.8 (12.0-16.0) g/dL Hct 39.7 (36.0-46.0) % MCV 87.8 (80.0-98.0) fL MCH 30.5 (27.0-32.0) pg MCHC 34.8 (31.0-37.0) g/dL RDW Std Deviation 41.2 (28.0-62.0) fl RDW Coeff of Leon 13 (11.0-15.0) % Plt Count 270 (150-400) K/uL MPV 10.50 (7.40-12.00) fL Neut % (Auto) 69.0 (48.0-80.0) % Lymph % (Auto) 24.7 (16.0-40.0) % Coffey % (Auto) 5.5 (0.0-15.0) % Eos % (Auto) 0.7 (0.0-7.0) % Baso % (Auto) 0.1 (0.0-1.5) % Neut # (Auto) 4.6 (1.4-5.7) K/uL Lymph # (Auto) 1.7 (0.6-2.4) K/uL Coffey # (Auto) 0.4 (0.0-0.8) K/uL Eos # (Auto) 0.1 (0.0-0.7) K/uL Baso # (Auto) 0.0 (0.0-0.1) K/uL Nucleated RBC % 0.0 /100WBC Nucleated RBCs # 0 K/uL D-Dimer, Quantitative (0.0-0.50) mg/L FEU VBG pH (7.31-7.41) VBG pCO2 (35-45) mmHG VBG pO2 (30-40) mmHG VBG HCO3 (22-30) mEq/L VBG Total CO2 (41-51) mmol/L VBG Base Excess (-3.0-3.0) Sodium (136-145) mmol/L Potassium (3.5-5.1) mmol/L Chloride (98-107) mmol/L Carbon Dioxide (21.0-32.0) mmol/L BUN (7.0-18.0) mg/dL Creatinine (0.6-1.0) mg/dL Est Cr Clr Drug Dosing mL/min Estimated GFR (MDRD) ml/min Glucose (74-106) mg/dL POC Glucose 291 H (60-110) mg/dL Calcium (8.5-10.1) mg/dL Total Bilirubin (0.2-1.0) mg/dL AST (15-37) IU/L ALT (14-63) IU/L Alkaline Phosphatase (46-116) U/L Troponin I (0.000-0.056) ng/mL Total Protein (6.4-8.2) g/dL Albumin (3.4-5.0) g/dL Globulin (2.6-4.0) g/dL Albumin/Globulin Ratio (0.9-1.6) Urine Color Urine Appearance Urine pH (5.0-8.0) Ur Specific Strawberry (1.001-1.035) Urine Protein (NEGATIVE) mg/dL Urine Glucose (UA) (NEGATIVE) mg/dL Urine Ketones (NEGATIVE) mg/dL Urine Occult Blood (NEGATIVE) Urine Nitrite (NEGATIVE) Urine Bilirubin (NEGATIVE) Urine Urobilinogen (<2.0) EU/dL Ur Leukocyte Esterase (NEGATIVE) Influenza Type A RNA NEGATIVE (NEGATIVE) Influenza Type B RNA NEGATIVE (NEGATIVE) SARS-CoV-2 RNA (ABRAHAM) NEGATIVE (NEGATIVE) 06/19/20 06/19/20 06/19/20 Range/Units 11:48 11:48 12:53 WBC (4.0-11.0) K/uL RBC (4.30-5.90) M/uL Hgb (12.0-16.0) g/dL Hct (36.0-46.0) % MCV (80.0-98.0) fL MCH (27.0-32.0) pg MCHC (31.0-37.0) g/dL RDW Std Deviation (28.0-62.0) fl RDW Coeff of Leon (11.0-15.0) % Plt Count (150-400) K/uL MPV (7.40-12.00) fL Neut % (Auto) (48.0-80.0) % Lymph % (Auto) (16.0-40.0) % Coffey % (Auto) (0.0-15.0) % Eos % (Auto) (0.0-7.0) % Baso % (Auto) (0.0-1.5) % Neut # (Auto) (1.4-5.7) K/uL Lymph # (Auto) (0.6-2.4) K/uL Coffey # (Auto) (0.0-0.8) K/uL Eos # (Auto) (0.0-0.7) K/uL Baso # (Auto) (0.0-0.1) K/uL Nucleated RBC % /100WBC Nucleated RBCs # K/uL D-Dimer, Quantitative 0.33 (0.0-0.50) mg/L FEU VBG pH 7.45 H (7.31-7.41) VBG pCO2 21 L (35-45) mmHG VBG pO2 182 H (30-40) mmHG VBG HCO3 15 L (22-30) mEq/L VBG Total CO2 1515 H (41-51) mmol/L VBG Base Excess -7 L (-3.0-3.0) Sodium 131 L (136-145) mmol/L Potassium 4.2 (3.5-5.1) mmol/L Chloride 100 (98-107) mmol/L Carbon Dioxide 17.7 L (21.0-32.0) mmol/L BUN 21 H (7.0-18.0) mg/dL Creatinine 0.8 (0.6-1.0) mg/dL Est Cr Clr Drug Dosing 65.61 mL/min Estimated GFR (MDRD) > 60.0 ml/min Glucose 327 H (74-106) mg/dL POC Glucose (60-110) mg/dL Calcium 8.6 (8.5-10.1) mg/dL Total Bilirubin 0.4 (0.2-1.0) mg/dL AST 17 (15-37) IU/L ALT 37 (14-63) IU/L Alkaline Phosphatase 119 H (46-116) U/L Troponin I < 0.050 (0.000-0.056) ng/mL Total Protein 7.0 (6.4-8.2) g/dL Albumin 3.3 L (3.4-5.0) g/dL Globulin 3.7 (2.6-4.0) g/dL Albumin/Globulin Ratio 0.9 (0.9-1.6) Urine Color Urine Appearance Urine pH (5.0-8.0) Ur Specific Strawberry (1.001-1.035) Urine Protein (NEGATIVE) mg/dL Urine Glucose (UA) (NEGATIVE) mg/dL Urine Ketones (NEGATIVE) mg/dL Urine Occult Blood (NEGATIVE) Urine Nitrite (NEGATIVE) Urine Bilirubin (NEGATIVE) Urine Urobilinogen (<2.0) EU/dL Ur Leukocyte Esterase (NEGATIVE) Influenza Type A RNA (NEGATIVE) Influenza Type B RNA (NEGATIVE) SARS-CoV-2 RNA (ABRAHAM) (NEGATIVE) 06/19/20 06/19/20 Range/Units 13:45 14:51 WBC (4.0-11.0) K/uL RBC (4.30-5.90) M/uL Hgb (12.0-16.0) g/dL Hct (36.0-46.0) % MCV (80.0-98.0) fL MCH (27.0-32.0) pg MCHC (31.0-37.0) g/dL RDW Std Deviation (28.0-62.0) fl RDW Coeff of Leon (11.0-15.0) % Plt Count (150-400) K/uL MPV (7.40-12.00) fL Neut % (Auto) (48.0-80.0) % Lymph % (Auto) (16.0-40.0) % Coffey % (Auto) (0.0-15.0) % Eos % (Auto) (0.0-7.0) % Baso % (Auto) (0.0-1.5) % Neut # (Auto) (1.4-5.7) K/uL Lymph # (Auto) (0.6-2.4) K/uL Coffey # (Auto) (0.0-0.8) K/uL Eos # (Auto) (0.0-0.7) K/uL Baso # (Auto) (0.0-0.1) K/uL Nucleated RBC % /100WBC Nucleated RBCs # K/uL D-Dimer, Quantitative (0.0-0.50) mg/L FEU VBG pH (7.31-7.41) VBG pCO2 (35-45) mmHG VBG pO2 (30-40) mmHG VBG HCO3 (22-30) mEq/L VBG Total CO2 (41-51) mmol/L VBG Base Excess (-3.0-3.0) Sodium (136-145) mmol/L Potassium (3.5-5.1) mmol/L Chloride (98-107) mmol/L Carbon Dioxide (21.0-32.0) mmol/L BUN (7.0-18.0) mg/dL Creatinine (0.6-1.0) mg/dL Est Cr Clr Drug Dosing mL/min Estimated GFR (MDRD) ml/min Glucose (74-106) mg/dL POC Glucose (60-110) mg/dL Calcium (8.5-10.1) mg/dL Total Bilirubin (0.2-1.0) mg/dL AST (15-37) IU/L ALT (14-63) IU/L Alkaline Phosphatase (46-116) U/L Troponin I < 0.050 (0.000-0.056) ng/mL Total Protein (6.4-8.2) g/dL Albumin (3.4-5.0) g/dL Globulin (2.6-4.0) g/dL Albumin/Globulin Ratio (0.9-1.6) Urine Color YELLOW Urine Appearance CLEAR Urine pH 5.5 (5.0-8.0) Ur Specific Strawberry 1.010 (1.001-1.035) Urine Protein NEGATIVE (NEGATIVE) mg/dL Urine Glucose (UA) >=1000 (NEGATIVE) mg/dL Urine Ketones NEGATIVE (NEGATIVE) mg/dL Urine Occult Blood NEGATIVE (NEGATIVE) Urine Nitrite NEGATIVE (NEGATIVE) Urine Bilirubin NEGATIVE (NEGATIVE) Urine Urobilinogen 0.2 (<2.0) EU/dL Ur Leukocyte Esterase NEGATIVE (NEGATIVE) Influenza Type A RNA (NEGATIVE) Influenza Type B RNA (NEGATIVE) SARS-CoV-2 RNA (ABRAHAM) (NEGATIVE) Meds: Medications Discontinued Medications Generic Name Dose Route Start Last Admin Trade Name Freq PRN Reason Stop Dose Admin Iopamidol 100 ml 06/19/20 14:02 06/19/20 14:04 Isovue Multipack-370 (76%) IVPUSH 06/19/20 14:03 100 ml ONETIME STA Administration Ketorolac Tromethamine 60 mg 06/19/20 11:07 03/04/21 11:18 Toradol IM 06/19/20 11:08 60 mg ONETIME ONE Administration Sodium Chloride 10 ml 06/19/20 11:37 06/19/20 14:58 Saline Flush FLUSH 10 ml ASDIRECTED PRN Administration Keep Vein Open Sodium Chloride 2.5 ml 06/19/20 11:37 06/19/20 14:58 Saline Flush FLUSH 2.5 ml ASDIRECTED PRN Administration Keep Vein Open Departure - Departure Time of Disposition: 17:57 Disposition: Home, Self-Care 01 Clinical Impression: Granulomatous lung disease, Hyperglycemia - Discharge Information Instructions: Cough, Adult, [id number], Droplet Precautions, [id number], Medical Screening Exam Referrals: Ana Luisa Charles MD [Primary Care Provider] - Forms: ED Department Discharge Additional Instructions: The following information is given to patients seen in the emergency department who are being discharged to home. This information is to outline your options for follow-up care. We provide all patients seen in our emergency department with a follow-up referral. The need for follow-up, as well as the timing and circumstances, are variable depending upon the specifics of your emergency department visit. If you don't have a primary care physician on staff, we will provide you with a referral. We always advise you to contact your personal physician following an emergency department visit to inform them of the circumstance of the visit and for follow-up with them and/or the need for any referrals to a consulting specialist. The emergency department will also refer you to a specialist when appropriate. This referral assures that you have the opportunity for follow-up care with a specialist. All of these measure are taken in an effort to provide you with optimal care, which includes your follow-up. Under all circumstances we always encourage you to contact your private physician who remains a resource for coordinating your care. When calling for follow-up care, please make the office aware that this follow-up is from your recent emergency room visit. If for any reason you are refused follow-up, please contact the [facility] Emergency Department at and asked to speak to the emergency department charge nurse. [facility] [address] [place] [id number] [facility] [address] [place] [id number] 1. Quarantine in your home until results from testing have returned. If you are around people, ensure that you are wearing a mask. Avoid being around children. 2. Perform the sputum samples in the morning tomorrow morning, and Tuesday morning, as thoroughly discussed with you. Return each sample to the lab immediately after sputum has been collected on each day. 3. Follow-up with your primary care provider as discussed. Return to the ED as needed and as discussed. Sepsis Event Note (ED) - Evaluation Sepsis Screening Result: Possible Sepsis Risk - Focused Exam Vital Signs: Vital Signs Temp Pulse Resp BP Pulse Ox 06/19/20 18:12 94 17 123/85 96 06/19/20 15:21 71 17 148/86 H 98 06/19/20 13:51 67 18 135/63 97 06/19/20 12:51 75 17 141/75 H 97 06/19/20 12:21 74 17 152/82 H 97 06/19/20 11:51 76 18 138/75 94 L 06/19/20 11:21 83 17 140/71 96 06/19/20 10:49 98.3 F 91 17 126/71 96 - My Orders Last 24 Hours: My Active Orders 06/19/20 11:37 Saline Lock Insert [OM.PC] Stat 06/19/20 16:32 QUANTIFERON TB PLUS [REF] Stat 06/19/20 17:58 CULTURE [employer] AND SMEAR [MREF] Routine - Assessment/Plan Last 24 Hours: My Active Orders 06/19/20 11:37 Saline Lock Insert [OM.PC] Stat 06/19/20 16:32 QUANTIFERON TB PLUS [REF] Stat 06/19/20 17:58 C[employer]URE [employer] AND SMEAR [MREF] Routine
--- NOTE | 2020-06-19 15:15 | PCM.EKG ---
#1 Interpretation EKG Interpretation Comments: Heart rate = 71 bpm, normal sinus rhythm, normal QRS interval, no STEMI. EKG and rhythm strip interpreted by me at 1445
--- NOTE | 2020-06-19 15:45 | CT ---
Indication: Lightheadedness with short upper arm pain. Rule out aortic dissection. Technique: Examination consists of a CT of the chest acquired in the axial plane from the thoracic inlet through the lung bases without contrast. Sagittal and coronal reformatted imaging was performed. Also, a CT of the aorta was performed following the uneventful intravenous administration of 100 milliliters of Isovue 370. That portion of the study was performed from just above the aortic arch through just beyond the aortic bifurcation. Sagittal and coronal reformatted imaging was performed Comparison: No prior transaxial studies Findings: CHEST PORTION OF STUDY: Heart size normal. Calcified mediastinal lymph nodes related to remote granulomatous infection. Atherosclerotic vascular calcifications but no evidence of aneurysm in the thorax or intramural hematoma. No pericardial effusion. Lung windows reveal multiple granulomas. There are also areas of scarring at the apices anteriorly, right greater than left. Minimal basilar atelectasis. No pleural effusion or pneumothorax. CONTRAST-ENHANCED AORTIC PORTION OF STUDY: Imaging was acquired from aortic arch through just beyond the bifurcation of the aorta. There are atherosclerotic vascular calcifications but there is no indication of dissection or aneurysm involving the thoracic aorta. There is no large vessel stenosis I identified specifically the celiac, SMA, both renal arteries and ODILIA appear to be patent. VISCERAL THE ABDOMEN AND PELVIS VISUALIZED: Liver, gallbladder, adrenal glands, spleen, pancreas and right kidney appear normal. 2.8 centimeter midpole left renal cyst. No adenopathy. Degenerative changes of the thoracic and lumbar spine without destructive process. Mild fecal retention and diverticulosis. Impression: 1. There is no evidence of thoracoabdominal aortic dissection, aneurysm or large vessel stenosis. 2. Chest: Evidence of remote granulomatous infection 3. Abdomen and pelvis: Nontender height of the pelvis was imaged on this study. There is a left renal cyst. Otherwise no notable findings. Please note that all CT scans at this facility use dose modulation, iterative reconstruction, and/or weight-based dosing when appropriate to reduce radiation dose to as low as reasonably achievable. Dictated by Aftab Danielle MD @ Jun 19 2020 3:09PM Signed by Dr. Aftab Danielle @ Jun 19 2020 3:43PM
[2020-06-19 18:13] VITALS: BP 123/85; PULSE 94
== END 2020-06-19 18:13 | disposition home or self-care (01) ==
LOC: MW.ED 10:40
DX: E11.65 Type 2 diabetes mellitus with hyperglycemia (principal); J84.10 Pulmonary fibrosis, unspecified; E03.9 Hypothyroidism, unspecified; Z20.822 Contact with and (suspected) exposure to COVID-19
CPT/HCPCS: 0240U; 36415; 71045; 71275; 74175; 80053; 81003; 82803; 82962; 84484; 85025; 85379; 86480; 93005; 96372; 99285; J1885; Q9967; 93010

== ENCOUNTER 2020-12-27 11:51 | Emergency (ER) | payer MEDICAID, OTHER ==
[2020-12-27] MEDS ORDERED: Acetaminophen/HYDROcodone 325-5 MG Tab PO ONE (11:55)
[2020-12-27] MEDS ORDERED: Lidocaine 1% 10 ML MDV INJECT ONE (12:12)
[2020-12-27] MEDS ORDERED: Amoxicillin/Clavulanate K 875-125 MG Tab PO ONE (12:48)
--- NOTE | 2020-12-27 13:51 | CR ---
HISTORY: Dog bite. TECHNIQUE: Three views of the left hand. COMPARISON: No prior. FINDINGS: There is an acute moderately displaced and angulated fracture of the proximal phalanx of the 5th finger of left hand. A small amount of soft tissue gas is present. Given this patient`s history of dog bite, this should be considered an open fracture. No other fracture. There are osteoarthritic changes. No radiopaque foreign body. IMPRESSION: Acute moderately displaced and angulated fracture of the proximal phalanx of 5th finger of left hand. Small amount of adjacent soft tissue gas. Given this patient`s history of dog bite, this should be considered an open fracture. Dictated by Mayo Maurer MD @ 12/27/2020 1:51:05 PM (Electronically Signed)
[2020-12-27] MEDS ORDERED: Rabies Vaccine, Human Diploid Cell PF 2.5 Unit SDV IM ONE (14:26)
[2020-12-27] MEDS ORDERED: Rabies Immune Globulin PF 150 Units/ML 2 ML SDV IM ONE (14:26)
--- NOTE | 2020-12-27 14:35 | EDM.PDOC ---
ED HPI GENERAL MEDICAL PROBLEM - General Chief Complaint: Bite:Animal, Insect Stated Complaint: DOG ATTACK TO PTS HAND Time Seen by Provider: 12/27/20 11:55 - History of Present Illness INITIAL COMMENTS - FREE TEXT/NARRATIVE: CHIEF COMPLAINT(S): Dog bite HISTORY OF PRESENT ILLNESS: This is a 65-year-old woman with a past medical history of diabetes mellitus, hypothyroidism who comes to the emergency department with a chief complaint of dog bite. The patient states that prior to arrival she was attacked by a large dog. She states that she was bit on her left hand. She states that she is currently experiencing 10 out of 10 pain along her pinky finger of her left hand with some bleeding. She states the bleeding has improved. She describes the pain as achy and sharp. She states is isolated mainly to her left hand but more in her left finger. There is no radiation of pain. She states that she cannot move her left fifth finger but denies any numbness. She has not yet tried anything for pain. She does not know if her tetanus is up-to-date. She states any movement aggravates the pain. There are no relieving factors. She does not know if the dog is up-to-date on its vaccines. REVIEW OF SYSTEMS: Constitutional: Denies fever, chills. Eyes: Denies eye pain Ears, Nose, Mouth, & Throat: Denies earache Cardiovascular: Denies chest pain Respiratory: Denies shortness of breath Gastrointestinal: Denies Nausea, vomiting, diarrhea, hematochezia. Genitourinary: Denies hematuria Skin: Positive for dog bite to left hand MSK: Positive for left hand and left pinky finger pain Neurological: Denies blurred vision Psychiatric: Denies depression PAST MEDICAL HISTORY: As per history of present illness and as reviewed below otherwise noncontributory. SURGICAL HISTORY: As per history of present illness and as reviewed below otherwise noncontributory. SOCIAL HISTORY: As per history of present illness and as reviewed below otherwise noncontributory. FAMILY HISTORY: As per history of present illness and as reviewed below otherwise noncontributory. EXAMINATION OF ORGAN SYSTEMS/BODY AREAS: Constitutional: Blood pressure 182/97, heart rate 107, respiratory rate 18 with an oxygen saturation of 98% on room air. Temperature 36.4 General: Middle-aged woman who is crying and holding her hand Psychiatric: Appropriate mood and affect. Eyes: No scleral icterus or conjunctival erythema ENMT: Moist mucous membranes. No pharyngeal erythema Cardiovascular: Regular, rate, and rhythm. No gallops, murmurs, or rubs. Bilateral upper extremity pulses symmetric and intact. Capillary refill less than 2 seconds in distal upper extremities and all digits Respiratory: Lungs clear to auscultation bilaterally. No wheezes, rales, or rhonchi. Gastrointestinal: Soft, non-tender, non-distended. Normoactive bowel sounds Genitourinary: No suprapubic tenderness Musculoskeletal: Decreased range of motion of the left pinky finger secondary to pain and obvious deformity. The patient can move all of her other fingers on her left hand. Skin: There is a puncture wound to the patient's pointer finger on the left hand without any obvious deformity. There is a large irregular laceration on the palmar aspect of the fifth pinky finger on the left hand without any active bleeding. No bone is exposed. Neurological: Alert, GCS 15 distal sensation is intact MEDICAL DECISION MAKING AND COURSE IN THE ED WITH INTERPRETATION/REVIEW OF DIAGNOSTIC STUDIES: This is a 65-year-old woman with a past medical history of diabetes mellitus and hypothyroidism who comes to the emergency department with an obvious deformity to her left pinky finger with some puncture wounds of her other finger with a large laceration on the palmar aspect of the pinky finger. At this time I do suspect the possibility of an open fracture. Obtain a hand x- ray. We will provide the patient with [place] for pain relief. We will provide the patient with Augmentin by mouth. Given the amount of pain we will perform a digital block as the patient is neurologically and vascularly intact. The radiological images were viewed by myself along with reading the report from the radiologist. Left hand x-ray reveals a acute moderately displaced and angulated fracture of the proximal phalanx of the fifth finger of the left hand. After imaging I did contact [facility] in [place] and spoke with Dr. Linda, he recommended to wash out the wound well, start the patient on antibiotics, place her in a splint and have her follow-up in his clinic within 24 to 48 hours. He stated to loosely approximate the laceration without completely clos ing it with Steri-Strips. After speaking with orthopedic surgeon I did speak with the patient. She was amenable to this plan. We did wash the patient's wound out and applied 2 Steri- Strips. Laceration Repair Note Repair of the 3 cm left pinky wound was done by myself. Wound was irrigated well with saline. Digital block was performed with approximately 1 cc on each side of the pinky finger. No foreign bodies were noted. The wound was repaired with 2 loosely approximated Steri-Strips. A bandage was placed in a splint was used given the fracture. At this time given the patient's tetanus is uncertain we will provide the patient with a tetanus booster. At this time I did asked the patient if the dog was vaccinated. She states that she does not know. At this time therefore given the degree of the laceration we will provide the patient with a rabies vaccine and rabies immunoglobulin. She was amenable to this plan. Immunoglobulin was administered. The police did contact us and they said the dog is up-to-date on vaccines. Therefore although we administered the immunoglobulin will not administer the rabies vaccine. I discussed strict return precautions with the patient and she was amenable discharge at this time. DISPOSITION: The patient was discharged home in stable condition. The patient will follow up with hand surgery within 1 to 2 days CONDITION: Fair PROCEDURES: Steri-Strip laceration repair FINAL IMPRESSION(S)/DIAGNOSES: 1. Acute open displaced angulated fracture of proximal phalanx of fifth finger of left hand 2. Acute dog bite laceration to fifth finger of left hand status post Steri- Strip repair Sammy Gallo M.D. left hand Pain Score (Numeric/FACES): 10 - Related Data Allergies Allergy/AdvReac Type Severity Reaction Status Date / Time No Known Allergies Allergy Verified 12/27/20 11:56 Home Meds: Home Meds Glimepiride 8 mg PO BID 01/09/18 [History] metFORMIN HCl [Metformin ER Gastric] 4 tab PO ASDIRECTED 01/09/18 [History] traMADol HCl [Tramadol HCl] 1 tab PO ASDIRECTED PRN 01/09/18 [History] Albuterol [Ventolin HFA] 1 puff INH Q4H #1 inhaler 05/16/19 [Rx] Levothyroxine [Synthroid] 25 mcg PO DAILY 12/02/19 [History] Saxagliptin HCl [Onglyza] 5 mg PO DAILY 12/02/19 [History] Amoxicillin/Potassium Clav [Augmentin 875-125 Tablet] 1 each PO BID #20 tablet 12/27/20 [Rx] Hydrocodone/Acetaminophen [HYDROcodone-Acetaminophen 5-325 MG] 1 each PO Q6H PRN #12 tab 12/27/20 [Rx] Hydrocodone/Acetaminophen [HYDROcodone-Acetaminophen 5-325 MG] 1 each PO Q6HR PRN #12 tab 12/27/20 [Rx] Past Medical History HEENT History: Reports: Impaired Vision, None Other HEENT History: wears glasses, upper denture Cardiovascular History: Reports: High Cholesterol, None Respiratory History: Reports: None Gastrointestinal History: Reports: None Genitourinary History: Reports: None 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: Musculoskeletal History: Reports: Fracture, None Other Musculoskeletal History: hx fx rt ankle and toes Neurological History: Reports: None, TIA Psychiatric History: Reports: None Endocrine/Metabolic History: Reports: Diabetes, Type II, Hyperthyroidism, Hypothyroidism Insulin Pump Model and Rough Carpenter: N/A Hematologic History: Reports: Anemia, None Immunologic History: Reports: None Oncologic (Cancer) History: Reports: Colon, None Dermatologic History: Reports: None - Infectious Disease History Infectious Disease History: Reports: Chicken Pox, None - Past Surgical History Head Surgeries/Procedures: Reports: None HEENT Surgical History: Reports: None Cardiovascular Surgical History: Reports: None Respiratory Surgical History: Reports: None GI Surgical History: Reports: Other (See Below) Other GI Surgeries/Procedures: part of colon resected from cancer Female Surgical History: Reports: Section, None Endocrine Surgical History: Reports: None Neurological Surgical History: Reports: None Musculoskeletal Surgical History: Reports: None Oncologic Surgical History: Reports: Other (See Below) Other Oncologic Surgeries/Procedures: colon resection Dermatological Surgical History: Reports: None Social & Family History - Family History Family Medical History: No Pertinent Family History Cardiac: Reports: Hypertension Other Cardiac Family History: mother - Tobacco Use Tobacco Use Status *Q: Never Tobacco User - Caffeine Use Caffeine Use: Reports: None Other Caffeine Use: 1 cup/day - Recreational Drug Use Recreational Drug Use: No ED ROS GENERAL - Review of Systems Review Of Systems: See Below ED EXAM, ANIMAL BITE - Physical Exam Exam: See Below Course - Vital Signs Last Recorded V/S: Last Vital Signs Temp 36.4 C 12/27/20 11:54 Pulse 77 12/27/20 14:15 Resp 18 12/27/20 14:15 BP 140/81 12/27/20 14:15 Pulse Ox 98 12/27/20 14:15 - Orders/Labs/Meds Meds: Medications Discontinued Medications Generic Name Dose Route Start Last Admin Trade Name Dakotah PRN Reason Stop Dose Admin Hydrocodone Bitart/Acetaminophen 1 tab 12/27/20 11:55 12/27/20 12:01 Acetaminophen/Hydrocodone 325-5 Mg Tab PO 12/27/20 11:56 1 tab ONETIME ONE Administration Amoxicillin/Clavulanate Potassium 1 tab 12/27/20 12:48 12/27/20 14:24 Amoxicillin/Clavulanate K 875-125 Mg Tab PO 12/27/20 12:49 1 tab ONETIME ONE Administration Diphtheria/Tetanus/Acell Pertussis 0.5 ml 12/27/20 15:01 12/27/20 15:26 Diphtheria,Pertussis(Acell),Tetanus Vaccine 0.5 Ml Syringe IM 12/27/20 15:02 0.5 ml .ONCE ONE Administration Lidocaine HCl 10 ml 12/27/20 12:12 12/27/20 12:35 Lidocaine 1% 10 Ml Mdv INJECT 12/27/20 12:13 Not Given ONETIME ONE Lidocaine HCl 10 ml 12/27/20 12:19 12/27/20 12:34 Lidocaine 1% 5 Ml Sdv INJECT 12/27/20 12:20 10 ml ONETIME ONE Administration Rabies Immune Globulin 1,500 unit 12/27/20 14:45 12/27/20 15:09 Rabies Immune Globulin Pf 150 Units/Ml 10 Ml Sdv IM 12/27/20 14:46 1,500 unit ONETIME ONE Administration Rabies Vaccine 2.5 unit 12/27/20 15:45 12/27/20 15:55 Rabies Vaccine (Gabriel) 2.5 Unit Inj Kit IM 12/27/20 15:46 2.5 unit .ONCE ONE Administration Departure - Departure Time of Disposition: 14:33 Disposition: Home, Self-Care 01 Condition: Fair Clinical Impression: Open fracture of phalanx of left little finger, Dog bite - Discharge Information *PRESCRIPTION DRUG MONITORING PROGRAM REVIEWED*: No *COPY OF PRESCRIPTION DRUG MONITORING REPORT IN PATIENT BRYAN: No Prescriptions: Amoxicillin/Potassium Clav [Augmentin 875-125 Tablet] 1 each PO BID #20 tablet Hydrocodone/Acetaminophen [HYDROcodone-Acetaminophen 5-325 MG] 1 each PO Q6H PRN #12 tab PRN Reason: Pain Hydrocodone/Acetaminophen [HYDROcodone-Acetaminophen 5-325 MG] 1 each PO Q6HR PRN #12 tab PRN Reason: Pain Instructions: Animal Bite, Adult, [id number], Rabies Immune Globulin, human RIG solution for injection, Finger Fracture, Adult, [id number], Rabies, Rabies Vaccine suspension for injection Referrals: Ana Luisa Charles MD [Primary Care Provider] - Forms: ED Department Discharge Additional Instructions: You were evaluated today on an emergent basis. At this time you do have an open fracture of your left pinky. We did clean it out with a lots of fluid and gave you an antibiotic. We did send an antibiotic to the pharmacy and I need you to complete the full course. In addition given the uncertainty if the dog has been vaccinated or if there was concern for rabies we did give you the rabies immunoglobulin. Given that the dog is fully vaccinated we did not administer the full rabies prophylaxis As discussed there is an increased risk of infection given the dog bite and the open fracture. It is important that you follow-up with a hand surgeon on Tuesday as discussed. His numbers listed below. [facility] [address] [phone] Please use [place] as needed every 6 hours. In addition to the [place] you may take 1 tablet of Tylenol 500 mg every 6 hours and Motrin 400 to 600 mg every 6 hours. I would like you to wash the wound once a day with soap and water. Then replace in the bandage and splint. Please return for worsening pain, pus drainage, or any concerns. The patient is informed of any results of their evaluation and diagnostic workup and all questions are answered. They are given discharge instructions and return precautions. The patient is stable for discharge. The patient states they understand and agree with the plan and that they will return if their symptoms get worse or if they have any new concerns. The following information is given to patients seen in the emergency department who are being discharged to home. This information is to outline your options for follow-up care. We provide all patients seen in our emergency department with a follow-up referral. The need for follow-up, as well as the timing and circumstances, are variable depending upon the specifics of your emergency department visit. If you don't have a primary care physician on staff, we will provide you with a referral. We always advise you to contact your personal physician following an emergency department visit to inform them of the circumstance of the visit and for follow-up with them and/or the need for any referrals to a consulting specialist. The emergency department will also refer you to a specialist when appropriate. This referral assures that you have the opportunity for follow-up care with a specialist. All of these measure are taken in an effort to provide you with optimal care, which includes your follow-up. Under all circumstances we always encourage you to contact your private physician who remains a resource for coordinating your care. When calling for follow-up care, please make the office aware that this follow-up is from your recent emergency room visit. If for any reason you are refused follow-up, please contact the [facility] Emergency Department at and asked to speak to the emergency department charge nurse. Sepsis Event Note (ED) - Evaluation Sepsis Screening Result: No Definite Risk
[2020-12-27] MEDS ORDERED: Rabies Immune Globulin PF 150 Units/ML 10 ML SDV IM ONE (14:45)
[2020-12-27] MEDS ORDERED: Diphtheria,Pertussis(Acell),Tetanus Vaccine 0.5 ML Syringe IM ONE (15:01)
[2020-12-27] MEDS ORDERED: Rabies Vaccine (Avian) 2.5 Unit Inj Kit IM ONE (15:45)
[2020-12-27 16:23] VITALS: BP 140/81; PULSE 77
== END 2020-12-27 16:15 | disposition home or self-care (01) ==
LOC: MW.ED 11:51
DX: S62.617B Displaced fracture of proximal phalanx of left little finger, initial encounter for open fracture (principal); E78.00 Pure hypercholesterolemia, unspecified; E11.9 Type 2 diabetes mellitus without complications; E03.9 Hypothyroidism, unspecified; Z86.73 Personal history of transient ischemic attack (TIA), and cerebral infarction without residual deficits; Z23 Encounter for immunization; W54.0XXA Bitten by dog, initial encounter
CPT/HCPCS: 73130; 90375; 90675; 90715; 96372; 99283; A9270

== ENCOUNTER 2021-01-03 13:37 | Emergency (ER) | payer MEDICAID, OTHER ==
[2021-01-03 13:45] VITALS: BP 121/70; PULSE 78
--- NOTE | 2021-01-03 14:05 | EDM.PDOC ---
ED HPI GENERAL MEDICAL PROBLEM - General Chief Complaint: Skin Complaint Stated Complaint: DRESSING CHANGE Time Seen by Provider: 01/03/21 13:39 Source of Information: Reports: Patient History Limitations: Reports: No Limitations - History of Present Illness INITIAL COMMENTS - FREE TEXT/NARRATIVE: HISTORY AND PHYSICAL: History of present illness: Patient is a 65-year-old female who presents to the emergency room with outpatient orders from Dr. Bruce for dressing changes. Patient had a dog bite of the left hand which required surgery at [facility] in [place]. She has been gett ing daily dressing changes at [facility] but due to it being the weekend she had to come to the emergency room to have this done (clinic is closed). She is currently taking Keflex and has Percocet for pain. She offers no current complaints or concerns. Review of systems: As per history of present illness and below otherwise all systems reviewed and negative. Past medical history: As per history of present illness and as reviewed below otherwise noncontributory. Surgical history: As per history of present illness and as reviewed below otherwise noncontributory. Social history: See social history for further information Family history: As per history of present illness and as reviewed below otherwise noncontributory. Physical exam: General: Well developed and well nourished. Alert and orientated x 3. Nontoxic in appearance and in no acute distress. Vital signs are stable and have been reviewed by me. Nursing notes were reviewed. HEENT: Atraumatic, normocephalic, pupils equal and reactive bilaterally, negative for conjunctival pallor or scleral icterus, mucous membranes moist, TMs normal bilaterally, throat clear, neck supple, nontender, trachea midline. No drooling or trismus noted. No meningeal signs. No hot potato voice noted. Lungs: Clear to auscultation bilaterally. Skin: 3 linear surgical incisions that are packed with iodoform, 2 on the left proximal index finger and one on the proximal fifth digit. She also has several pins of the left fifth digit. No concerns of active infection. Remaining skin is intact, warm, dry. No lesions or rashes noted. Hematologic: No petechiae or purpra. Mucosa appropriate color and normal nail bed color and refill. Extremities: Moves all extremities per self without difficulty or deficits - left hand immobilized due to recent surgery. Neurovascular unremarkable. Neuro: Awake, alert, oriented. Cranial nerves II through XII unremarkable. Cerebellum unremarkable. Motor and sensory unremarkable throughout. Exam non focal. Psychiatric: Mood and affect are appropriate. Normal thought process. Answering questions appropriately. Please note that the patient was seen and evaluated during the 2019 SARS-CoV-2 novel coronavirus pandemic period. Community viral transmission is ongoing at time of this encounter and the emergency department is operating under pandemic response procedures. Medical Decision Making: Patient states she is here for dressing change, has no other complaints or concerns. She has been having dressing changes daily, no concerns of worsening or progressing infection. The ulnar gutter splint was removed, padding removed and fourth inch iodoform removed from the 3 surgical incisions. Some drainage noted. Sites were cleansed and iodoform was replaced. Surgical site was redressed. I have talked with the patient about today's findings, in addition to providing specific details for plan of care. Reassessment at the time of disposition demonstrates that the patient is in no acute distress. The patient is stable for discharge, counseling was provided and we discussed in great detail signs and symptoms that would prompt them to return to the Emergency Department. Medication, follow up and supportive care measures were reviewed and discussed. Voices understanding and is agreeable to plan of care. Denies any further questions or concerns at this time. Diagnostics: None Therapeutics: Wound care, packing, ulnar gutter splint Prescription: None Impression: Reevaluation of surgical site with dressing change Plan: 1. Please continue to do your daily dressing changes as you already have arranged. Continue to monitor the site for signs of infection. Take the antibiotic as prescribed. 2. You can alternate Tylenol and ibuprofen as needed for pain and fever management. 3. We encourage you to follow up with Dr Bruce for re-evaluation and further care/management. 4. If your symptoms should worsen, new symptoms develop or any of the signs and symptoms we discussed should arise please return to the emergency room or call 911 (if needed). Definitive disposition and diagnosis as appropriate pending reevaluation and review of above. left upper extremity Pain Score (Numeric/FACES): 5 - Related Data Allergies Allergy/AdvReac Type Severity Reaction Status Date / Time No Known Allergies Allergy Verified 12/27/20 11:56 Home Meds: Home Meds Glimepiride 8 mg PO BID 01/09/18 [History] metFORMIN HCl [Metformin ER Gastric] 4 tab PO ASDIRECTED 01/09/18 [History] traMADol HCl [Tramadol HCl] 1 tab PO ASDIRECTED PRN 01/09/18 [History] Albuterol [Ventolin HFA] 1 puff INH Q4H #1 inhaler 05/16/19 [Rx] Levothyroxine [Synthroid] 25 mcg PO DAILY 12/02/19 [History] Saxagliptin HCl [Onglyza] 5 mg PO DAILY 12/02/19 [History] Amoxicillin/Potassium Clav [Augmentin 875-125 Tablet] 1 each PO BID #20 tablet 12/27/20 [Rx] Hydrocodone/Acetaminophen [HYDROcodone-Acetaminophen 5-325 MG] 1 each PO Q6H PRN #12 tab 12/27/20 [Rx] Hydrocodone/Acetaminophen [HYDROcodone-Acetaminophen 5-325 MG] 1 each PO Q6HR PRN #12 tab 12/27/20 [Rx] cephALEXin [Cephalexin] 01/03/21 [History] Past Medical History HEENT History: Reports: Impaired Vision, None Other HEENT History: wears glasses, upper denture Cardiovascular History: Reports: High Cholesterol, None Respiratory History: Reports: None Gastrointestinal History: Reports: None Genitourinary History: Reports: None CITY ASSESSOR 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: 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: Musculoskeletal History: Reports: Fracture, None Other Musculoskeletal History: hx fx rt ankle and toes Neurological History: Reports: None, TIA Psychiatric History: Reports: None Endocrine/Metabolic History: Reports: Diabetes, Type II, Hyperthyroidism, Hypothyroidism Insulin Pump Model and Infusion Pharmacist: N/A Hematologic History: Reports: Anemia, None Immunologic History: Reports: None Oncologic (Cancer) History: Reports: Colon, None Dermatologic History: Reports: None - Infectious Disease History Infectious Disease History: Reports: Chicken Pox, None - Past Surgical History Head Surgeries/Procedures: Reports: None HEENT Surgical History: Reports: None Cardiovascular Surgical History: Reports: None Respiratory Surgical History: Reports: None GI Surgical History: Reports: Other (See Below) Other GI Surgeries/Procedures: part of colon resected from cancer Female Surgical History: Reports: Section, None Endocrine Surgical History: Reports: None Neurological Surgical History: Reports: None Musculoskeletal Surgical History: Reports: None Oncologic Surgical History: Reports: Other (See Below) Other Oncologic Surgeries/Procedures: colon resection Dermatological Surgical History: Reports: None Social & Family History - Family History Family Medical History: No Pertinent Family History Cardiac: Reports: Hypertension Other Cardiac Family History: mother - Tobacco Use Tobacco Use Status *Q: Never Tobacco User Second Hand Smoke Exposure: No - Caffeine Use Caffeine Use: Reports: None Other Caffeine Use: 1 cup/day - Recreational Drug Use Recreational Drug Use: No ED ROS GENERAL - Review of Systems Review Of Systems: Comprehensive ROS is negative, except as noted in HPI. ED EXAM, SKIN/RASH Exam: See Below (See dictation) ED SKIN PROCEDURES - I&D Site: Surgical sites of left hand Skin Prep: Saline, Sterile Drape Drainage: Purulent, Small Amount Packed With: 1/4 in. Iodoform Sterile Dressinx4(s) Complications: No Progress/Comments: Pre-existing surgical sites requiring removal of packing and replaced with new 1/4 inch iodoform. Course - Vital Signs Last Recorded V/S: Last Vital Signs Temp 97.2 F 01/03/21 13:41 Pulse 78 01/03/21 13:41 Resp 18 01/03/21 13:41 BP 121/70 01/03/21 13:41 Pulse Ox 98 01/03/21 13:41 - Orders/Labs/Meds Orders: Active Orders 24 hr Category Date Time Status DME for Discharge [COMM] Stat Oth 01/03/21 14:08 Ordered Departure - Departure Time of Disposition: 14:15 Disposition: Home, Self-Care 01 Clinical Impression: Dressing change or removal, surgical wound - Discharge Information Instructions: Incision Care, Adult, [id number] Referrals: PCP,None [Primary Care Provider] - Forms: ED Department Discharge Additional Instructions: The following information is given to patients seen in the emergency department who are being discharged to home. This information is to outline your options for follow-up care. We provide all patients seen in our emergency department with a follow-up referral. The need for follow-up, as well as the timing and circumstances, are variable depending upon the specifics of your emergency department visit. If you don't have a primary care physician on staff, we will provide you with a referral. We always advise you to contact your personal physician following an emergency department visit to inform them of the circumstance of the visit and for follow-up with them and/or the need for any referrals to a consulting specialist. The emergency department will also refer you to a specialist when appropriate. This referral assures that you have the opportunity for follow-up care with a specialist. All of these measure are taken in an effort to provide you with opt imal care, which includes your follow-up. Under all circumstances we always encourage you to contact your private physician who remains a resource for coordinating your care. When calling for follow-up care, please make the office aware that this follow-up is from your recent emergency room visit. If for any reason you are refused follow-up, please contact the [facility] Emergency Department at and asked to speak to the emergency department charge nurse. [facility] Primary Care [address], [place] [address] [facility] [address] [place] [id number] Thank you for choosing the [facility] emergency department in [place] for your medical needs today. It was a pleasure caring for you. Today you were seen in the emergency department for wound care/dressing change. 1. Please continue to do your daily dressing changes as you already have arranged. Continue to monitor the site for signs of infection. Take the antibiotic as prescribed. 2. You can alternate Tylenol and ibuprofen as needed for pain and fever management. 3. We encourage you to follow up with Dr Bruce for re-evaluation and further care/management. 4. If your symptoms should worsen, new symptoms develop or any of the signs and symptoms we discussed should arise please return to the emergency room or call 911 (if needed). Sepsis Event Note (ED) - Evaluation Sepsis Screening Result: No Definite Risk - Focused Exam Vital Signs: Vital Signs Temp Pulse Resp BP Pulse Ox 01/03/21 13:41 97.2 F 78 18 121/70 98 - My Orders Last 24 Hours: My Active Orders 01/03/21 14:08 DME for Discharge [COMM] Stat - Assessment/Plan Last 24 Hours: My Active Orders 01/03/21 14:08 DME for Discharge [COMM] Stat
== END 2021-01-03 14:22 | disposition home or self-care (01) ==
LOC: MW.ED 13:37
DX: Z48.01 Encounter for change or removal of surgical wound dressing (principal); E11.9 Type 2 diabetes mellitus without complications; E05.90 Thyrotoxicosis, unspecified without thyrotoxic crisis or storm; Z79.84 Long term (current) use of oral hypoglycemic drugs; Z79.899 Other long term (current) drug therapy
CPT/HCPCS: 99282

== ENCOUNTER 2021-01-04 13:42 | Emergency (ER) | payer MEDICAID, OTHER ==
[2021-01-04 14:22] VITALS: PULSE 70
--- NOTE | 2021-01-04 15:29 | EDM.PDOC ---
ED HPI GENERAL MEDICAL PROBLEM - General Stated Complaint: DRESSING CHANGE Time Seen by Provider: 01/04/21 15:27 Source of Information: Reports: Patient History Limitations: Reports: No Limitations - History of Present Illness INITIAL COMMENTS - FREE TEXT/NARRATIVE: HISTORY AND PHYSICAL: History of present illness: Patient is a 65-year-old female who presents to the emergency room for a routine dressing change. She has been going to [facility] during the weekday for daily dressing changes of a surgical site. During the weekend she comes to the emergency room for evaluation and dressing change. She offers no current complaints or concerns. Is taking her home medications as directed. Review of systems: As per history of present illness and below otherwise all systems reviewed and negative. Past medical history: As per history of present illness and as reviewed below otherwise noncontributory. Surgical history: As per history of present illness and as reviewed below otherwise non contributory. Social history: See social history for further information Family history: As per history of present illness and as reviewed below otherwise noncontributory. Physical exam: General: Well developed and well nourished. Alert and orientated x 3. Nontoxic in appearance and in no acute distress. Vital signs are stable and have been reviewed by me. Nursing notes were reviewed. HEENT: Atraumatic, normocephalic, pupils equal and reactive bilaterally, negative for conjunctival pallor or scleral icterus, mucous membranes moist, trachea midline. No drooling or trismus noted. No meningeal signs. No hot potato voice noted. Lungs: Clear to auscultation bilaterally. Skin: Surgical incisions have iodoform packing x3. Pins intact without any drainage. Remaining skin is intact, warm, dry. No lesions or rashes noted. Hematologic: No petechiae or purpra. Mucosa appropriate color and normal nail bed color and refill. Extremities: Recent surgery of left hand, she moves all extremities per self without difficulty or deficits. Neurovascular unremarkable. Neuro: Awake, alert, oriented. Cranial nerves II through XII unremarkable. Cerebellum unremarkable. Motor and sensory unremarkable throughout. Exam nonfocal. Psychiatric: Mood and affect are appropriate. Normal thought process. Answering questions appropriately. Please note that the patient was seen and evaluated during the 2019 SARS-CoV-2 novel coronavirus pandemic period. Community viral transmission is ongoing at time of this encounter and the emergency department is operating under pandemic response procedures. Medical Decision Making: The surgical sites were cleansed and packing was removed and replaced. Patient tolerated well. She does go to [facility] tomorrow for her next dressing change. She offers no other complaints or concerns today. I have talked with the patient about today's findings, in addition to providing specific details for plan of care. Reassessment at the time of disposition demonstrates that the patient is in no acute distress. The patient is stable for discharge, counseling was provided and we discussed in great detail signs and symptoms that would prompt them to return to the Emergency Department. Medication, follow up and supportive care measures were reviewed and discussed. Voices understanding and is agreeable to plan of care. Denies any further questions or concerns at this time. Diagnostics: None Therapeutics: Wound care Prescription: None Impression: Reevaluation of surgical site and dressing change Plan: 1. You were evaluated today on an emergent basis. Please continue doing your dressing changes as directed. 2. You can alternate Tylenol and ibuprofen as needed for pain and fever management. 3. We encourage you to follow up with Dr Bruce for re-evaluation and further care/management. 4. If your symptoms should worsen, new symptoms develop or any of the signs and symptoms we discussed should arise please return to the emergency room or call [phone] (if needed). Definitive disposition and diagnosis as appropriate pending reevaluation and review of above. left hand Pain Score (Numeric/FACES): 7 - Related Data Allergies Allergy/AdvReac Type Severity Reaction Status Date / Time No Known Allergies Allergy Verified 12/27/20 11:56 Home Meds: Home Meds Glimepiride 8 mg PO BID 01/09/18 [History] metFORMIN HCl [Metformin ER Gastric] 4 tab PO ASDIRECTED 01/09/18 [History] traMADol HCl [Tramadol HCl] 1 tab PO ASDIRECTED PRN 01/09/18 [History] Albuterol [Ventolin HFA] 1 puff INH Q4H #1 inhaler 05/16/19 [Rx] Levothyroxine [Synthroid] 25 mcg PO DAILY 12/02/19 [History] Saxagliptin HCl [Onglyza] 5 mg PO DAILY 12/02/19 [History] Amoxicillin/Potassium Clav [Augmentin 875-125 Tablet] 1 each PO BID #20 tablet 12/27/20 [Rx] Hydrocodone/Acetaminophen [HYDROcodone-Acetaminophen 5-325 MG] 1 each PO Q6H PRN #12 tab 12/27/20 [Rx] Hydrocodone/Acetaminophen [HYDROcodone-Acetaminophen 5-325 MG] 1 each PO Q6HR PRN #12 tab 12/27/20 [Rx] cephALEXin [Cephalexin] 01/03/21 [History] Past Medical History HEENT History: Reports: Impaired Vision, None Other HEENT History: wears glasses, upper denture Cardiovascular History: Reports: High Cholesterol, None Respiratory History: Reports: None Gastrointestinal History: Reports: None Genitourinary History: Reports: None 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: Musculoskeletal History: Reports: Fracture, None Other Musculoskeletal History: hx fx rt ankle and toes Neurological History: Reports: None, TIA Psychiatric History: Reports: None Endocrine/Metabolic History: Reports: Diabetes, Type II, Hyperthyroidism, Hypothyroidism Insulin Pump Model and Digital Strategy Manager: N/A Hematologic History: Reports: Anemia, None Immunologic History: Reports: None Oncologic (Cancer) History: Reports: Colon, None Dermatologic History: Reports: None - Infectious Disease History Infectious Disease History: Reports: Chicken Pox, None - Past Surgical History Head Surgeries/Procedures: Reports: None HEENT Surgical History: Reports: None Cardiovascular Surgical History: Reports: None Respiratory Surgical History: Reports: None GI Surgical History: Reports: Other (See Below) Other GI Surgeries/Procedures: part of colon resected from cancer Female Surgical History: Reports: Section, None Endocrine Surgical History: Reports: None Neurological Surgical History: Reports: None Musculoskeletal Surgical History: Reports: None Oncologic Surgical History: Reports: Other (See Below) Other Oncologic Surgeries/Procedures: colon resection Dermatological Surgical History: Reports: None Social & Family History - Family History Family Medical History: No Pertinent Family History Cardiac: Reports: Hypertension Other Cardiac Family History: mother - Caffeine Use Caffeine Use: Reports: None Other Caffeine Use: 1 cup/day ED ROS GENERAL - Review of Systems Review Of Systems: Comprehensive ROS is negative, except as noted in HPI. ED EXAM, SKIN/RASH Exam: See Below (See dictation) Course - Vital Signs Last Recorded V/S: Last Vital Signs Temp 95.0 F L 01/04/21 14:20 Pulse 70 01/04/21 14:20 Resp 18 01/04/21 14:20 BP Pulse Ox 98 01/04/21 14:20 Departure - Departure Time of Disposition: 15:28 Disposition: Home, Self-Care 01 Clinical Impression: Dressing change or removal, surgical wound - Discharge Information Instructions: Wound Care, Adult Forms: ED Department Discharge Additional Instructions: The following information is given to patients seen in the emergency department who are being discharged to home. This information is to outline your options for follow-up care. We provide all patients seen in our emergency department with a follow-up referral. The need for follow-up, as well as the timing and circumstances, are variable depending upon the specifics of your emergency department visit. If you don't have a primary care physician on staff, we will provide you with a referral. We always advise you to contact your personal physician following an emergency department visit to inform them of the circumstance of the visit and for follow-up with them and/or the need for any referrals to a consulting specialist. The emergency department will also refer you to a specialist when appropriate. This referral assures that you have the opportunity for follow-up care with a specialist. All of these measure are taken in an effort to provide you with optimal care, which includes your follow-up. Under all circumstances we always encourage you to contact your private physician who remains a resource for coordinating your care. When calling for follow-up care, please make the office aware that this follow-up is from your recent emergency room visit. If for any reason you are refused follow-up, please contact the [facility] Emergency Department at and asked to speak to the emergency department charge nurse. [facility] Primary Care [address] [place] [address] [id number] [address] [address] Thank you for choosing the [facility] emergency department in [place] for your medical needs today. It was a pleasure caring for you. Today you were seen in the emergency department for dressing change. 1. You were evaluated today on an emergent basis. Please continue doing your dressing changes as directed. 2. You can alternate Tylenol and ibuprofen as needed for pain and fever management. 3. We encourage you to follow up with Dr Bruce for re-evaluation and further care/management. 4. If your symptoms should worsen, new symptoms develop or any of the signs and symptoms we discussed should arise please return to the emergency room or call 911 (if needed). Sepsis Event Note (ED) - Evaluation Sepsis Screening Result: No Definite Risk - Focused Exam Vital Signs: Vital Signs Temp Pulse Resp Pulse Ox 01/04/21 14:20 95.0 F L 70 18 98
== END 2021-01-04 15:37 | disposition home or self-care (01) ==
LOC: MW.ED 13:42
DX: Z48.01 Encounter for change or removal of surgical wound dressing (principal); E11.9 Type 2 diabetes mellitus without complications; E03.9 Hypothyroidism, unspecified; Z79.84 Long term (current) use of oral hypoglycemic drugs; Z79.899 Other long term (current) drug therapy
CPT/HCPCS: 99282

== ENCOUNTER 2021-01-10 14:36 | Emergency (ER) | payer MEDICAID, OTHER ==
[2021-01-10 16:13] VITALS: BP 127/81; PULSE 95
== END 2021-01-10 20:50 | disposition left against medical advice (07) ==
LOC: MW.ED 14:36
DX: Z53.21 Procedure and treatment not carried out due to patient leaving prior to being seen by health care provider (principal)

== ENCOUNTER 2021-01-11 10:12 | Emergency (ER) | payer MEDICAID, OTHER ==
[2021-01-11 20:54] VITALS: BP 101/71; PULSE 89
== END 2021-01-11 10:57 ==
LOC: MW.ED 10:12
DX: Z48.01 Encounter for change or removal of surgical wound dressing (principal)
CPT/HCPCS: 99282

== ENCOUNTER 2023-01-28 10:42 | Emergency (ER) | payer MEDICARE, MEDICAID ==
[2023-01-28] MEDS ORDERED: Sodium Chloride 0.9% 1,000 ML IV ONE (10:52)
[2023-01-28] MEDS ORDERED: Ondansetron 4 MG/2 ML SDV IVPUSH ONE (10:57)
[2023-01-28] MEDS ORDERED: Ketorolac 30 MG/ML SDV IVPUSH ONE (10:57)
[2023-01-28 11:11] LABS: BASOPHILS ABSOLUTE AUTO 0.01 K/uL (0.00-0.20); BASOPHILS PERCENT AUTO 0.1 % (0.0-1.0); EOSINOPHILS ABSOLUTE AUTO 0.04 K/uL (0.00-0.45); EOSINOPHILS PERCENT AUTO 0.4 % (0.0-6.0); HEMATOCRIT 29.2 % (37.0-47.0); HEMOGLOBIN 10.2 g/dL (12.0-16.0); IMMATURE GRAN ABSOLUTE AUTO 0.06 K/uL (0.00-0.05); IMMATURE GRAN PERCENT AUTO 0.6 % (0.0-0.4); LYMPHOCYTES ABSOLUTE AUTO 1.77 K/uL (1.00-4.80); LYMPHOCYTES PERCENT AUTO 16.4 % (24.0-44.0); MEAN CORPUSCULAR HGB CONC 34.9 g/dL (32.0-36.0); MEAN PLATELET VOLUME 9.9 fL (9.4-12.3); MONOCYTES ABSOLUTE AUTO 0.66 K/uL (0.00-0.80); MONOCYTES PERCENT AUTO 6.1 % (0.0-8.0); NEUTROPHILS ABSOLUTE AUTO 8.28 K/uL (1.80-7.70); NEUTROPHILS PERCENT AUTO 76.4 % (41.0-71.0); PLATELET COUNT,PLT 270 K/uL (150-400); RED BLOOD CELL COUNT 3.52 M/uL (4.10-5.30); WHITE BLOOD CELL COUNT,WBC 10.82 K/uL (3.9-11.3)
[2023-01-28 11:43] LABS: A/G RATIO 0.6 (0.9-1.6); BILIRUBIN TOTAL 0.6 mg/dL (0.2-1.0); CALCIUM 8.7 mg/dL (8.5-10.1); CARBON DIOXIDE,CO2 23.5 mmol/L (21.0-32.0); CREATININE 1.2 mg/dL (0.6-1.0); EST CRCL DRUG DOSING (CG) 42.06 mL/min; MAGNESIUM 1.8 mg/dL (1.8-2.4); PROTEIN TOTAL,TP 7.8 g/dL (6.4-8.2)
[2023-01-28 11:44] LABS: LACTIC ACID 0.7 mmol/L (0.4-2.0)
[2023-01-28 12:01] LABS: CORONAVIRUS COVID-19 NAA NEGATIVE (NEGATIVE); INFLUENZA A NAA NEGATIVE (NEGATIVE); INFLUENZA B NAA NEGATIVE (NEGATIVE)
[2023-01-28 12:04] LABS: APPEARANCE,URINE SLT CLOUDY; BILIRUBIN,URINE NEGATIVE (NEGATIVE); COLOR,URINE YELLOW; GLUCOSE,URINE NEGATIVE (NEGATIVE); KETONES,URINE NEGATIVE (NEGATIVE); LEUKOCYTE ESTERASE,URINE MODERATE (NEGATIVE); NITRITE,URINE NEGATIVE (NEGATIVE); OCCULT BLOOD,URINE LARGE (NEGATIVE); PROTEIN,URINE TRACE mg/dL (NEGATIVE); UROBILINOGEN,URINE 0.2 EU/dL (<2.0)
[2023-01-28] MEDS ORDERED: Iopamidol 755 MG/ML 500 ML Multipack Bottle IVPUSH STA (12:07)
[2023-01-28 12:12] LABS: BACTERIA,URINE 3+ (NEGATIVE); EPITHELIAL CELLS,URINE FEW (NONE-FEW); WBC,URINE 50-60 (0-5/HPF)
[2023-01-28] MEDS ORDERED: cefTRIAXone 1 GM in Sodium Chloride 0.9% 50 ML IV ONE (13:19)
[2023-01-28 13:35] VITALS: BP 120/58
[2023-01-28 14:27] VITALS: PULSE 68
== END 2023-01-28 14:27 | disposition home or self-care (01) ==
LOC: MW.ED 10:42
DX: N12 Tubulo-interstitial nephritis, not specified as acute or chronic (principal); E11.9 Type 2 diabetes mellitus without complications; Z87.891 Personal history of nicotine dependence; Z20.822 Contact with and (suspected) exposure to COVID-19
CPT/HCPCS: 0240U; 36415; 74177; 80053; 81001; 83605; 83690; 83735; 84484; 85025; 93005; 96361; 96365; 96375; 99285; J0696; J1885; J2405; J3490; J7030; Q9967; 93010; 99284

== ENCOUNTER 2023-09-13 13:26 | Inpatient (IN) | payer MEDICARE, MEDICAID ==
[2023-09-13] MEDS: Sodium Chloride 0.9% 1,000 ML IV STA ×3 (14:14→16:43)
[2023-09-13 14:25] LABS: BASOPHILS ABSOLUTE AUTO 0.03 K/uL (0.00-0.20); BASOPHILS PERCENT AUTO 0.2 % (0.0-1.0); EOSINOPHILS ABSOLUTE AUTO 0.04 K/uL (0.00-0.45); EOSINOPHILS PERCENT AUTO 0.3 % (0.0-6.0); HEMATOCRIT 28.6 % (37.0-47.0); IMMATURE GRAN ABSOLUTE AUTO 0.15 K/uL (0.00-0.05); IMMATURE GRAN PERCENT AUTO 1.2 % (0.0-0.4); LYMPHOCYTES ABSOLUTE AUTO 1.63 K/uL (1.00-4.80); LYMPHOCYTES PERCENT AUTO 12.7 % (24.0-44.0); MEAN CORPUSCULAR HEMOGLOBIN 30.8 pg (28.0-32.0); MEAN PLATELET VOLUME 9.9 fL (9.4-12.3); MONOCYTES ABSOLUTE AUTO 1.24 K/uL (0.00-0.80); MONOCYTES PERCENT AUTO 9.6 % (0.0-8.0); NEUTROPHILS ABSOLUTE AUTO 9.79 K/uL (1.80-7.70); PLATELET COUNT,PLT 269 K/uL (150-400); RED BLOOD CELL COUNT 3.25 M/uL (4.10-5.30); WHITE BLOOD CELL COUNT,WBC 12.88 K/uL (3.9-11.3)
[2023-09-13 14:35] LABS: INR 0.96 (0.86-1.11)
[2023-09-13 14:55] LABS: A/G RATIO 0.5 (0.9-1.6); ALBUMIN 2.2 g/dL (3.4-5.0); BILIRUBIN TOTAL 0.5 mg/dL (0.2-1.0); CALCIUM 8.5 mg/dL (8.5-10.1); CARBON DIOXIDE,CO2 20.4 mmol/L (21.0-32.0); EST CRCL DRUG DOSING (CG) 25.9 mL/min; POTASSIUM,K 4.1 mmol/L (3.5-5.1); PROTEIN TOTAL,TP 6.8 g/dL (6.4-8.2)
[2023-09-13] MEDS: Iopamidol 755 MG/ML 500 ML Multipack Bottle IVPUSH STA (14:55)
[2023-09-13] MEDS: cefTRIAXone 2 GM in Sodium Chloride 0.9% 50 ML IV STA (14:59)
[2023-09-13 15:07] LABS: LACTIC ACID 0.6 mmol/L (0.4-2.0)
[2023-09-13 16:38] LABS: HEMOGLOBIN A1C 11.2 %
[2023-09-13] MEDS: Sodium Chloride 0.9% 1,000 ML IV SCH (20:21)
[2023-09-13] MEDS: Morphine 2 MG/ML SYRINGE IVPUSH PRN (20:25)
[2023-09-13] MEDS: Acetaminophen 325 MG Tab PO PRN (20:29)
[2023-09-14] MEDS: oxyCODONE 5 MG Tab PO PRN (04:47)
[2023-09-14 06:19] LABS: BASOPHILS ABSOLUTE AUTO 0.04 K/uL (0.00-0.20); BASOPHILS PERCENT AUTO 0.3 % (0.0-1.0); EOSINOPHILS ABSOLUTE AUTO 0.03 K/uL (0.00-0.45); EOSINOPHILS PERCENT AUTO 0.2 % (0.0-6.0); HEMATOCRIT 24.9 % (37.0-47.0); HEMOGLOBIN 8.5 g/dL (12.0-16.0); IMMATURE GRAN ABSOLUTE AUTO 0.11 K/uL (0.00-0.05); IMMATURE GRAN PERCENT AUTO 0.9 % (0.0-0.4); LYMPHOCYTES ABSOLUTE AUTO 1.09 K/uL (1.00-4.80); LYMPHOCYTES PERCENT AUTO 8.7 % (24.0-44.0); MEAN CORPUSCULAR HGB CONC 34.1 g/dL (32.0-36.0); MEAN PLATELET VOLUME 9.5 fL (9.4-12.3); MONOCYTES ABSOLUTE AUTO 1.03 K/uL (0.00-0.80); MONOCYTES PERCENT AUTO 8.3 % (0.0-8.0); NEUTROPHILS ABSOLUTE AUTO 10.16 K/uL (1.80-7.70); NEUTROPHILS PERCENT AUTO 81.6 % (41.0-71.0); PLATELET COUNT,PLT 285 K/uL (150-400); RED BLOOD CELL COUNT 2.83 M/uL (4.10-5.30); WHITE BLOOD CELL COUNT,WBC 12.46 K/uL (3.9-11.3)
[2023-09-14 07:01] LABS: CARBON DIOXIDE,CO2 20.2 mmol/L (21.0-32.0); CREATININE 1.1 mg/dL (0.6-1.0); EST CRCL DRUG DOSING (CG) 46.18 mL/min; POTASSIUM,K 3.8 mmol/L (3.5-5.1)
[2023-09-14 07:02] LABS: CALCIUM 7.3 mg/dL (8.5-10.1)
[2023-09-14] MEDS: Levothyroxine 25 MCG Tab PO SCH (07:04)
[2023-09-14] MEDS: Insulin Aspart 100 Units/ML 3 ML Pen SUBCUT SCH (07:42)
[2023-09-14] MEDS: Enoxaparin 40 MG/0.4 ML Syringe SUBCUT SCH (07:59)
[2023-09-14] MEDS ORDERED: Enoxaparin 30 MG/0.3 ML Syringe SUBCUT SCH (09:00)
[2023-09-14] MEDS: cefTRIAXone 1 GM in Sodium Chloride 0.9% 50 ML IV SCH (14:39)
[2023-09-14] MEDS: Insulin Glargine,Hum.Rec.Anlog 100 UNIT/ML 3 ML Pen SUBCUT SCH (21:21)
[2023-09-15 06:58] LABS: BASOPHILS ABSOLUTE AUTO 0.03 K/uL (0.00-0.20); BASOPHILS PERCENT AUTO 0.3 % (0.0-1.0); EOSINOPHILS PERCENT AUTO 0.9 % (0.0-6.0); HEMATOCRIT 24.2 % (37.0-47.0); HEMOGLOBIN 8.2 g/dL (12.0-16.0); IMMATURE GRAN ABSOLUTE AUTO 0.15 K/uL (0.00-0.05); IMMATURE GRAN PERCENT AUTO 1.3 % (0.0-0.4); LYMPHOCYTES ABSOLUTE AUTO 1.67 K/uL (1.00-4.80); LYMPHOCYTES PERCENT AUTO 14.7 % (24.0-44.0); MEAN CORPUSCULAR HEMOGLOBIN 29.8 pg (28.0-32.0); MEAN CORPUSCULAR HGB CONC 33.9 g/dL (32.0-36.0); MEAN PLATELET VOLUME 9.6 fL (9.4-12.3); MONOCYTES ABSOLUTE AUTO 0.98 K/uL (0.00-0.80); MONOCYTES PERCENT AUTO 8.6 % (0.0-8.0); NEUTROPHILS ABSOLUTE AUTO 8.41 K/uL (1.80-7.70); NEUTROPHILS PERCENT AUTO 74.2 % (41.0-71.0); PLATELET COUNT,PLT 331 K/uL (150-400); RED BLOOD CELL COUNT 2.75 M/uL (4.10-5.30); WHITE BLOOD CELL COUNT,WBC 11.34 K/uL (3.9-11.3)
[2023-09-15 07:17] LABS: CALCIUM 7.9 mg/dL (8.5-10.1); CARBON DIOXIDE,CO2 20.3 mmol/L (21.0-32.0); CREATININE 0.8 mg/dL (0.6-1.0); EST CRCL DRUG DOSING (CG) 63.5 mL/min; POTASSIUM,K 3.8 mmol/L (3.5-5.1)
[2023-09-16 05:52] LABS: BASOPHILS ABSOLUTE AUTO 0.03 K/uL (0.00-0.20); BASOPHILS PERCENT AUTO 0.3 % (0.0-1.0); EOSINOPHILS ABSOLUTE AUTO 0.18 K/uL (0.00-0.45); EOSINOPHILS PERCENT AUTO 2.1 % (0.0-6.0); HEMATOCRIT 24.4 % (37.0-47.0); HEMOGLOBIN 8.5 g/dL (12.0-16.0); IMMATURE GRAN PERCENT AUTO 1.2 % (0.0-0.4); LYMPHOCYTES ABSOLUTE AUTO 1.84 K/uL (1.00-4.80); LYMPHOCYTES PERCENT AUTO 21.2 % (24.0-44.0); MEAN CORPUSCULAR HEMOGLOBIN 30.5 pg (28.0-32.0); MEAN CORPUSCULAR HGB CONC 34.8 g/dL (32.0-36.0); MEAN CORPUSCULAR VOLUME 87.5 fL (83.0-99.0); MEAN PLATELET VOLUME 9.3 fL (9.4-12.3); MONOCYTES ABSOLUTE AUTO 0.61 K/uL (0.00-0.80); NEUTROPHILS ABSOLUTE AUTO 5.92 K/uL (1.80-7.70); NEUTROPHILS PERCENT AUTO 68.2 % (41.0-71.0); PLATELET COUNT,PLT 392 K/uL (150-400); RED BLOOD CELL COUNT 2.79 M/uL (4.10-5.30); WHITE BLOOD CELL COUNT,WBC 8.68 K/uL (3.9-11.3)
[2023-09-16 06:14] LABS: CALCIUM 8.4 mg/dL (8.5-10.1); CARBON DIOXIDE,CO2 21.3 mmol/L (21.0-32.0); CREATININE 0.9 mg/dL (0.6-1.0); EST CRCL DRUG DOSING (CG) 56.44 mL/min; POTASSIUM,K 3.8 mmol/L (3.5-5.1)
[2023-09-16 12:39] VITALS: BP 142/68; PULSE 70
== END 2023-09-16 14:10 | disposition home or self-care (01) | DRG 690 ==
LOC: MW.ED 13:26 → MW.MS 15:43 → OBSVTOIN 09-15 12:37 → MW.MS 09-16 04:01
PROVIDERS: ADMIT Internal Medicine; ATTEND Internal Medicine
DX: N12 Tubulo-interstitial nephritis, not specified as acute or chronic (principal); E87.1 Hypo-osmolality and hyponatremia; N17.9 Acute kidney failure, unspecified; E11.9 Type 2 diabetes mellitus without complications; I10 Essential (primary) hypertension; E78.00 Pure hypercholesterolemia, unspecified; E03.9 Hypothyroidism, unspecified; F17.210 Nicotine dependence, cigarettes, uncomplicated; F32.A Depression, unspecified; D64.9 Anemia, unspecified; Z79.890 Hormone replacement therapy; Z86.73 Personal history of transient ischemic attack (TIA), and cerebral infarction without residual deficits; Z79.4 Long term (current) use of insulin; Z90.49 Acquired absence of other specified parts of digestive tract
CPT/HCPCS: 36415; 74177; 74177-26; 80048; 80053; 82947; 83036; 83605; 83690; 85025; 85610; 87040; 96361; 96365; 96366; 96372; 96375; 96376; 99284; 99285-25; A9270-GY; G0378; J0696; J1650; J1815-GY; J2270; J3490; J7030; Q9967

== ENCOUNTER 2023-11-11 08:06 | Day surgery (SDC) | payer MEDICARE, MEDICAID ==
[2023-11-11] MEDS ORDERED: propofoL 50 ML ONE (08:32)
[2023-11-11] MEDS: Lactated Ringers 1,000 ML IV SCH (08:35)
[2023-11-11] MEDS ORDERED: Ketorolac 30 MG/ML SDV ONE (09:36)
[2023-11-11] MEDS ORDERED: Ondansetron 4 MG/2 ML SDV ONE (09:36)
[2023-11-11 10:32] VITALS: BP 99/55; PULSE 63
== END 2023-11-11 10:55 | disposition home or self-care (01) ==
LOC: MW.SDS 08:06
PROVIDERS: ATTEND Surgery
DX: Z12.11 Encounter for screening for malignant neoplasm of colon (principal); D12.6 Benign neoplasm of colon, unspecified; K57.30 Diverticulosis of large intestine without perforation or abscess without bleeding; K64.8 Other hemorrhoids; E03.9 Hypothyroidism, unspecified; E11.9 Type 2 diabetes mellitus without complications; F17.210 Nicotine dependence, cigarettes, uncomplicated; Z79.899 Other long term (current) drug therapy; Z79.4 Long term (current) use of insulin; Z79.890 Hormone replacement therapy; Z79.84 Long term (current) use of oral hypoglycemic drugs; Z90.49 Acquired absence of other specified parts of digestive tract; Z86.010 Personal history of colon polyps
CPT/HCPCS: 45380; 82947; 88305; J1885; J2405; J2704; J7120; 00811

== ENCOUNTER 2024-05-28 10:48 | Emergency (ER) | payer MEDICARE, MEDICAID ==
[2024-05-28 11:16] LABS: BASOPHILS ABSOLUTE AUTO 0.03 K/uL (0.00-0.20); BASOPHILS PERCENT AUTO 0.4 % (0.0-1.0); EOSINOPHILS ABSOLUTE AUTO 0.05 K/uL (0.00-0.45); EOSINOPHILS PERCENT AUTO 0.7 % (0.0-6.0); HEMATOCRIT 30.1 % (37.0-47.0); HEMOGLOBIN 10.7 g/dL (12.0-16.0); IMMATURE GRAN ABSOLUTE AUTO 0.03 K/uL (0.00-0.05); IMMATURE GRAN PERCENT AUTO 0.4 % (0.0-0.4); LYMPHOCYTES ABSOLUTE AUTO 1.53 K/uL (1.00-4.80); LYMPHOCYTES PERCENT AUTO 21.5 % (24.0-44.0); MEAN CORPUSCULAR HEMOGLOBIN 29.7 pg (28.0-32.0); MEAN CORPUSCULAR HGB CONC 35.5 g/dL (32.0-36.0); MEAN CORPUSCULAR VOLUME 83.6 fL (83.0-99.0); MEAN PLATELET VOLUME 9.8 fL (9.4-12.3); MONOCYTES ABSOLUTE AUTO 0.59 K/uL (0.00-0.80); MONOCYTES PERCENT AUTO 8.3 % (0.0-8.0); NEUTROPHILS ABSOLUTE AUTO 4.89 K/uL (1.80-7.70); NEUTROPHILS PERCENT AUTO 68.7 % (41.0-71.0); PLATELET COUNT,PLT 307 K/uL (150-400); WHITE BLOOD CELL COUNT,WBC 7.12 K/uL (3.9-11.3)
[2024-05-28 11:45] VITALS: BP 133/74; PULSE 82
[2024-05-28 11:45] LABS: A/G RATIO 0.6 (0.9-1.6); ALBUMIN 2.9 g/dL (3.4-5.0); BILIRUBIN TOTAL 0.5 mg/dL (0.2-1.0); CALCIUM 9.2 mg/dL (8.5-10.1); CARBON DIOXIDE,CO2 20.1 mmol/L (21.0-32.0); EST CRCL DRUG DOSING (CG) 47.79 mL/min; POTASSIUM,K 4.5 mmol/L (3.5-5.1); PROTEIN TOTAL,TP 7.4 g/dL (6.4-8.2)
== END 2024-05-28 12:33 | disposition left against medical advice (07) ==
LOC: MW.ED 10:48
DX: Z53.21 Procedure and treatment not carried out due to patient leaving prior to being seen by health care provider (principal)
CPT/HCPCS: 36415; 80053; 83690; 85025